=== PATIENT | female | born 1945 | race Caucasian/White ===

== ENCOUNTER 2024-09-22 08:58 | Inpatient (IN) ==
--- NOTE | 2024-09-01 12:22 | PAT Medication Instructions ---
Medication Instructions Date of Service September 01, 2024 Home Medications amlodipine 10 mg tablet 10 mg PO QAM apixaban 5 mg tablet (Eliquis) 5 mg PO BID atorvastatin 40 mg tablet 40 mg PO QPM carvedilol 12.5 mg tablet 25 mg PO BID cholecalciferol (vitamin D3) 50 mcg (2,000 unit) capsule (Vitamin D3) 50 mcg PO QAM furosemide 40 mg tablet 40 mg PO QAM garlic 500 mg PO QAM iron,carbonyl 65 mg-vitamin C 125 mg tablet,delayed release (Vitron-C) 2 tab PO QDL levothyroxine 100 mcg tablet 100 mcg PO QAM magnesium 1 tab PO BID olmesartan 40 mg tablet 40 mg PO QAM oxycodone-acetaminophen 5 mg-325 mg tablet (Percocet) 1 tab PO BID PRN Pain ropinirole 0.25 mg tablet 0.25 mg PO TID tizanidine 4 mg tablet 2 mg PO TID trazodone 150 mg tablet 150 mg PO HS venlafaxine 37.5 mg tablet 37.5 mg PO BID vit C 250 mg-vit E 90 mg-zinc 40 mg-copper 1 cm-tupslp-mazane capsule (PreserVision AREDS-2) 2 tab PO 1500 ASK your prescriber and surgeon apixaban 5 mg tablet (Eliquis) 5 mg PO BID STOP taking 2 weeks before surgery (or as soon as possible) garlic 500 mg PO QAM vit C 250 mg-vit E 90 mg-zinc 40 mg-copper 1 [id number] capsule (Pr eserVision AREDS-2) 2 tab PO 1500 DO NOT take the morning of surgery cholecalciferol (vitamin D3) 50 mcg (2,000 unit) capsule (Vitamin D3) 50 mcg PO QAM furosemide 40 mg tablet 40 mg PO QAM iron,carbonyl 65 mg-vitamin C 125 mg tablet,delayed release (Vitron-C) 2 tab PO QDL magnesium 1 tab PO BID olmesartan 40 mg tablet 40 mg PO QAM Take morning of surgery With a small sip of water, OTHERWISE NOTHING TO EAT OR DRINK AFTER MIDNIGHT: amlodipine 10 mg tablet 10 mg PO QAM carvedilol 12.5 mg tablet 25 mg PO BID levothyroxine 100 mcg tablet 100 mcg PO QAM oxycodone-acetaminophen 5 mg-325 mg tablet (Percocet) 1 tab PO BID PRN Pain (if needed) ropinirole 0.25 mg tablet 0.25 mg PO TID tizanidine 4 mg tablet 2 mg PO TID venlafaxine 37.5 mg tablet 37.5 mg PO BID Take evening before surgery atorvastatin 40 mg tablet 40 mg PO QPM carvedilol 12.5 mg tablet 25 mg PO BID magnesium 1 tab PO BID oxycodone-acetaminophen 5 mg-325 mg tablet (Percocet) 1 tab PO BID PRN Pain (if needed) ropinirole 0.25 mg tablet 0.25 mg PO TID tizanidine 4 mg tablet 2 mg PO TID trazodone 150 mg tablet 150 mg PO HS venlafaxine 37.5 mg tablet 37.5 mg PO BID Other Notes If you have any questions please call us at [phone] or [phone] or [phone] or [phone]
--- NOTE | 2024-09-09 11:23 | Anesthesiology Consultation ---
Date of Service September 09, 2024 Assessment & Plan (1) Encounter for pre-operative examination: - Check BSG AM DOS - Eliquis instructions per surgeon/prescriber - Infectious disease screening: Per assessment on 09/09/24: No known recent infectious disease contacts or current infectious disease symptoms. - Cardiology visit (09/07/24): "S/P TAVR (transcatheter aortic valve replacem ent)- underwent a successful transfemoral implantation of a #23mm Allen Dinh S3 Ultra valve on 10/01/[address] Brewster.. euvolemic on exam.. No ppx antibiotics indicated as she has upper/lower dentures.. HTN, goal below 140/80.. blood pressure above goal.. continue amlodipine 10 mg daily, olmesartan 40 mg daily.. Reduce carvedilol to 12.5 mg twice daily due to bradycardia.. consider addition of hydralazine, will send message to nephrology for recommendations.. Preoperative cardiovascular examination- scheduled for back surgery 09/22.. asymptomatic and euvolemic on exam.. recommend moving up echo appt prior to surgery to assess valvular disease.. discussed further cardiac risk stratification with stress test, discussed dobutamine stress test and nuclear stress test, likely would not tolerate treadmill stress test, discussed risks and benefits, patient declines any stress test, understands risks of not completing further testing including MS, .. she is at moderate to high risk for perioperative cardiac complications.. recommend to hold Eliquis 3 days prior to procedure to minimize bleeding risk, ideally would continue aspirin" > Received response from surgeon's office that surgeon has been made aware of cardiology perioperative risk assessment. - PCP visit (09/10/24): "if cleared by Cardiology feel that the patient can continue with surgery as well. Monitor blood pressures to make sure numbers are coming down.. I was unable to access her labs which were done at [facility]. As long as labs within normal limits feel patient can continue to proceed.. see Cardiology notes for further info on the patient's cardiovascular status.. They are able to walk up a flight of stairs, walk two blocks at a moderate pace, and grocery shop. The patient's functional status is adequate (equal to 4 METS).. Patient is high medical risk for the listed proced ure.. Discontinue Eliquis 3 days prior to surgery. Ideally would be great if she could continue aspirin 81 mg daily.. Patient was assessed by Cardiology and deemed at moderate risk for surgery." - Siri with surgeon's office confirmed surgeon aware of patient's mod-high risk assessments provided by PCP/cardio. Patient acceptable risk for given surgery pending evaluation DOS. Chart Review Chart Review: Patient seen in Pre Admission Testing Teaching & Discussion Pre-Anesthesia Teaching/Discussion Notes: Instructed NPO after midnight before surgery,except medications with 15 cc of water. Medication instructions provided according to the PAT guidelines. History Surgery Operation Date: 09/22/24 09:35 Proposed Procedures p L3-L5 Hardware Removal, L2-L3 Decompression, and L2-L5 Fusion Instrumentation, Spinal Cord Monitoring - Irvin Barnes, Height/Weight Height: 4 ft 11.5 in Weight: 65 kg Allergies Allergy/AdvReac Type Severity Reaction Status Date / Time No Known Allergies Allergy Verified 09/01/24 10:21 Medications Home Medications Medication Instructions Recorded Confirmed Last Taken amlodipine 10 mg tablet 10 mg PO QAM 09/01/24 09/01/24 Unknown apixaban 5 mg tablet (Eliquis) 5 mg PO BID 09/01/24 09/01/24 Unknown atorvastatin 40 mg tablet 40 mg PO QPM 09/01/24 09/01/24 Unknown carvedilol 12.5 mg tablet 1 mg PO BID 09/01/24 09/09/24 Unknown cholecalciferol (vitamin D3) 50 50 mcg PO QAM 09/01/24 09/01/24 Unknown mcg (2,000 unit) capsule (Vitamin D3) furosemide 40 mg tablet 40 mg PO QAM 09/01/24 09/01/24 Unknown garlic 500 mg PO QAM 09/01/24 09/01/24 Unknown iron,carbonyl 65 mg-vitamin C 125 2 tab PO QDL 09/01/24 09/01/24 Unknown mg tablet,delayed release (Vitron-C) levothyroxine 100 mcg tablet 100 mcg PO QAM 09/01/24 09/01/24 Unknown magnesium 1 tab PO BID 09/01/24 09/01/24 Unknown olmesartan 40 mg tablet 40 mg PO QAM 09/01/24 09/01/24 Unknown oxycodone-acetaminophen 5 mg-325 1 tab PO BID PRN Pain 10/01/24 10/01/24 Unknown mg tablet (Percocet) ropinirole 0.25 mg tablet 0.25 mg PO TID 09/01/24 09/01/24 Unknown tizanidine 4 mg tablet 2 mg PO TID 09/01/24 09/01/24 Unknown trazodone 150 mg tablet 150 mg PO HS 09/01/24 09/01/24 Unknown venlafaxine 37.5 mg tablet 37.5 mg PO BID 09/01/24 09/01/24 Unknown vit C 250 mg-vit E 90 mg-zinc 40 2 tab PO 1500 09/01/24 09/01/24 Unknown mg-copper 1 [id number] capsule (PreserVision AREDS-2) Past Medical History Medical History Anxiety Chronic anemia Baseline hgb 9-10s Chronic back pain Chronic kidney disease [facility] Baseline creatinine 2.1-2.2 per available records Coronary artery disease Cardiac cath 08/2023- nonobstructive disease, medical management recommended Degenerative disc disease Depression History of aortic valve disease TAVR Dinh (09/2023) Follows with [facility] cardio Echo 09/2024 History of COVID-19 : mild symptoms, resolved History of non-Hodgkin's lymphoma (2004) s/p chemotherapy, currently in remission History of stroke 07/2022, residual mild right hand/right foot weakness Hx of diabetes mellitus Type 2, diet controlled Hyperlipidemia Hypertension Hypothyroidism Macular degeneration of left eye Mild/early stages Osteoarthritis Restless leg syndrome Exercise / Class Metabolic Activity III < 4 Walking/Shop/Light housework Past Family History Family History Other No family history of adverse response to anesthesia Past Surgical History Surgical History History of cardiac cath 08/2023 (prior to TAVR)- no stents History of cataract surgery R/L History of cholecystectomy History of colonoscopy Per records History of ERCP (2022) + stent placement (subsequent removal) History of esophagogastroduodenoscopy (EGD) Per records History of heart valve replacement 09/2023- TAVR Dinh History of knee replacement procedure of left knee History of Lizy-en-Y gastric bypass History of umbilical hernia repair S/P epidural steroid injection S/P lumbar fusion x2 L3/L4 fusion L4/L5 fusion S/P lymph node biopsy (2004) Groin S/P panniculectomy S/P [place]-BSO Past Anesthesia History No Hx of Anesthesia Complications and No Family Hx of Anesthesia Complications History of PONV No Hx of PONV and No Hx of Motion Sickness Social History Smoking Status: Never smoker Do You Dip or Chew Tobacco: No Hx Alcohol Use: No Hx Substance Use: No substance use type: does not use Review of Systems Patient denies chest pain, shortness of breath, fever, chills, cough, wheezing, palpitations. Physical Exam Vital Signs BP 155/73 P 72 TEMP 98.5 SP02 97%RA RESP 18 Physical Full cervical extension range of motion. Full TMJ range of motion. TMD 3 finger breaths Mallampati Score II Dentition: upper/lower full dentures with two lower posts Lungs: clear throughout to auscultation Cardiac: regular rate and rhythm, III/ systolic murmur Spine: normal Carotid arteries: negative bruit Extremities: no LE edema Lab Results Anesthesia Preop Results Results Anesthesia Widget: PTT 31 Seconds (21-31) 09/09/24 Urine Color Yellow 09/09/24 Urine Appearance Clear (Clear) 09/09/24 Urine pH 5.5 (4.5-7.5) 09/09/24 Urine Specific Armour 1.008 (1.000-1.030) 09/09/24 Urine Protein Trace (Negative) H 09/09/24 Urine Glucose (UA) Negative (Negative) 09/09/24 Urine Ketones Negative (Negative) 09/09/24 Urine Blood Negative (Negative) 09/09/24 Urine Nitrite Negative (Negative) 09/09/24 Urine Bilirubin Negative (Negative) 09/09/24 Urine Urobilinogen Negative (Negative) 09/09/24 Urine Leukocyte Esterase Negative (Negative) 09/09/24 Urine WBC (Auto) 0-5 /hpf (0-5) 09/09/24 Urine RBC (Auto) 3-5 /hpf (0-2) H 09/09/24 Urine Hyaline Casts (Auto) 0-2 /lpf (0-2) 09/09/24 Urine Epithelial Cells (Auto) 0-2 /hpf (0-2) 09/09/24 Urine Bacteria (Auto) None Seen (None Seen) 09/09/24 Blood Type A Positive 09/09/24 Antibody Screen NEGATIVE 09/09/24 Testing Laboratory Results 08/18/24 WBC 9.42 H/H 10.6/34.6 PLATELETS 252 SODIUM 138 POTASSIUM 4.8 CHLORIDE 104 CO2 19 BUN 40 CREATININE 2.1 (stable) GLUCOSE 161 PT 15.8 INR 1.3 Mildly elevated coags- patient taking Eliquis* A1C 5.9% TSH 0.22 Ferritin 108 Iron 44 Iron binding capacity 316 Transferrin saturation percent 14 Electrocardiogram Date: 11/06/23 Marked sinus bradycardia with PACs in pattern of bigeminy at 41bpm. LVH with secondary QRS widening and repolarization abnormality. Date: 09/07/24 "Sinus bradycardia, 53 bpm" per [facility] cardio note from same day. Tracings unavailable. Chest X-Ray Date: 10/02/23 Findings: + NAD Echocardiogram Date: 09/07/24 LVEF 60-64%. The patient is status post TAVR with Dinh type prosthetic valve. Mean systolic gradient through the TAVR is 60 mmHg. Peak aortic valve velocity through the TAVR is 2.7M/sec. Significant aortic valve prosthetic regurgitation is absent. Severe mitral annular calcification. Mild to moderate MR. Mild TR. Small (<5mm) circumferential pericardial effusion is noted. Mildly increased concentric LV wall thickness. LV wall motion is normal. Grade 1 diastolic dysfunction. Cardiac Catheterization Date: 08/09/23 Coronary diseasehemodynamically insignificant. Mild luminal irregularities. Recommendations: Medical management of nonobstructive CAD.
[2024-09-22] MEDS ORDERED: fentaNYL citrate PF 100 MCG/2 ML VIAL ONE (09:46)
[2024-09-22] MEDS ORDERED: DEXAMETHASONE SOD INJ 4 MG/ML VIAL ONE (09:46)
[2024-09-22] MEDS ORDERED: MIDAZOLAM HCL 1 MG/ML 2ML VIAL ONE (09:46)
[2024-09-22] MEDS ORDERED: LIDOCAINE 2% 2 ML VIAL/AMP(20MG/ML) INFIL ONE ×2 (09:46)
[2024-09-22] MEDS ORDERED: ONDANSETRON INJ 2 MG/ML 2 ML VIAL ONE (09:46)
[2024-09-22] MEDS ORDERED: ROCURONIUM BROMIDE 10 MG/ML 5 ML VIAL IV ONE ×9 (09:46→11:17)
[2024-09-22] MEDS ORDERED: PROPOFOL IV EMULSION 10 MG/ML 20 ML VIAL IV ONE (09:46)
--- NOTE | 2024-09-22 10:19 | History & Physical Bridge Note ---
Date of Service September 22, 2024 History & Physical Bridge Note I have examined the patient, reviewed the History & Physical and in the interval since the performance of the History & Physical I have noted the following changes of clinical significance: no changes noted
--- NOTE | 2024-09-22 10:20 | History & Physical Report ---
Date of Service September 22, 2024 Assessment & Plan (1) Lumbar stenosis with neurogenic claudication: Plan: L3-L5 hardware removal, L2-L3 decompression and fusion, reinstrumentation L2-L5 History of Present Illness Chief Complaint: Back and bilateral leg pain Primary Care Provider: Fatmata Daniel MD This is a 78-year-old female presents with chronic persistent back and leg pain after failing course of nonoperative care is here for surgical invention. Allergies Allergy/AdvReac Type Severity Reaction Status Date / Time No Known Allergies Allergy Verified 09/22/24 09:50 Home Medications Medication Instructions Recorded Confirmed Type amlodipine 10 mg tablet 10 mg PO QAM 09/01/24 09/22/24 History apixaban 5 mg tablet (Eliquis) 5 mg PO BID 09/01/24 09/22/24 History atorvastatin 40 mg tablet 40 mg PO QPM 09/01/24 09/22/24 History carvedilol 12.5 mg tablet 1 mg PO BID 09/01/24 09/22/24 History cholecalciferol (vitamin D3) 50 50 mcg PO QAM 09/01/24 09/22/24 History mcg (2,000 unit) capsule (Vitamin D3) furosemide 40 mg tablet 40 mg PO QAM 09/01/24 09/22/24 History garlic 500 mg PO QAM 09/01/24 09/22/24 History iron,carbonyl 65 mg-vitamin C 125 2 tab PO QDL 09/01/24 09/22/24 History mg tablet,delayed release (Vitron-C) levothyroxine 100 mcg tablet 100 mcg PO QAM 09/01/24 09/22/24 History magnesium 1 tab PO BID 09/01/24 09/22/24 History olmesartan 40 mg tablet 40 mg PO QAM 09/01/24 09/22/24 History oxycodone-acetaminophen 5 mg-325 1 tab PO BID PRN Pain 09/01/24 09/22/24 History mg tablet (Percocet) ropinirole 0.25 mg tablet 0.25 mg PO TID 09/01/24 09/22/24 History tizanidine 4 mg tablet 2 mg PO TID 09/01/24 09/22/24 History trazodone 150 mg tablet 150 mg PO HS 09/01/24 09/22/24 History venlafaxine 37.5 mg tablet 37.5 mg PO BID 09/01/24 09/22/24 History vit C 250 mg-vit E 90 mg-zinc 40 2 tab PO 1500 09/01/24 09/22/24 History mg-copper 1 [id number] capsule (PreserVision AREDS-2) Past Med/Surg History Problem List Encounter for pre-operative examination Depression (Chronic) GERD (gastroesophageal reflux disease) (Chronic) Lumbar stenosis with neurogenic claudication (Acute) Medical History Anxiety Chronic anemia Baseline hgb 9-10s Chronic back pain Chronic kidney disease [facility] Baseline creatinine 2.1-2.2 per available records Coronary artery disease Cardiac cath 08/2023- nonobstructive disease, medical management recommended Degenerative disc disease Depression History of aortic valve disease TAVR Dinh (09/2023) Follows with [facility] cardio Echo 09/2024 History of COVID-19 : mild symptoms, resolved History of non-Hodgkin's lymphoma (2004) s/p chemotherapy, currently in remission History of stroke 07/2022, residual mild right hand/right foot weakness Hx of diabetes mellitus Type 2, diet controlled Hyperlipidemia Hypertension Hypothyroidism Macular degeneration of left eye Mild/early stages Osteoarthritis Restless leg syndrome Surgical History History of cardiac cath 08/2023 (prior to TAVR)- no stents History of cataract surgery R/L History of cholecystectomy History of colonoscopy Per records History of ERCP (2022) + stent placement (subsequent removal) History of esophagogastroduodenoscopy (EGD) Per records History of heart valve replacement 09/2023- TAVR Dinh History of knee replacement procedure of left knee History of Lizy-en-Y gastric bypass History of umbilical hernia repair S/P epidural steroid injection S/P lumbar fusion x2 L3/L4 fusion L4/L5 fusion S/P lymph node biopsy (2004) Groin S/P panniculectomy S/P [place]-BSO Family History Other No family history of adverse response to anesthesia Social History Smoking Status: Never smoker Second Hand Exposure: No; Do You Dip or Chew Tobacco: No; Tobacco Cessation Education Requested by Patient: No Hx Alcohol Use: No Hx Substance Use: No Preferred Language: [place] Communication Ability: Effective Bottom Stainer Required: No Beliefs That Will Affect Care: None Current Living Situation: Family Current Living Situation Comment: daughterMagi lives with patient Other Information That Helps Us Care for You: No Feels Safe at Home: Yes Safety Concerns: Feels Safe At This Time Assistive Devices: Denture - Upper, Denture - Lower and Glasses Physical Exam Physical Exam: Patient is alert and oriented Heart regular rhythm Lungs clear
[2024-09-22] MEDS: LR 60ML/HR IV SCH (10:25)
[2024-09-22] MEDS: CeleBREX 200 MG CAP PO SCH (10:31)
[2024-09-22] MEDS: ACETAMINOPHEN 500 MG TAB PO SCH (10:31)
[2024-09-22] MEDS: GABAPENTIN 300 MG CAP PO SCH (10:31)
[2024-09-22] MEDS: LR 15ML/HR IV SCH (10:32)
[2024-09-22] MEDS ORDERED: PROMETHAZINE HCL 6.25 MG in SODIUM CHLORIDE 0.9% 50 ML IV PRN (10:35)
[2024-09-22] MEDS ORDERED: ePHEDrine sulfate 50 MG/ML AMP IV PRN (10:35)
[2024-09-22] MEDS ORDERED: ATROPINE SULFATE 0.1 MG/ML 10ML SYR IV PRN (10:35)
[2024-09-22] MEDS ORDERED: PHENYLEPHRINE 100MCG/ML 10ML SYR IV ONE (11:15)
[2024-09-22] MEDS ORDERED: SUGAMMADEX SODIUM 200 MG/2 ML VIAL IV ONE (11:16)
--- OUTSIDE RECORDS SUMMARY | 2024-09-22 11:36 | External Medical Summary | Summary of Care ---
Author Name Unknown Organization [facility] Address [address] [place] [address] Phone [phone] Care Team Providers Care Caustic Loader Name Role Phone Jessica Ansari MD Primary Care Provider [phone] Reason for Visit * Reason Onset Date Comments Medication Question 09/16/2024 Stop Eliquis Encounter Details Date Type Department Care Team ([facility] st Contact Info) Description [facility] [address] [facility] [place] [id number] Mago Kaufman MD [address] [place] [address] Medication Question (Stop Eliquis) Allergies No known active allergiesdocumented as of this encounter (statuses as of 09/16/2024) Medications Medication Sig Dispensed Refills Start Date End Date Status PreserVision AREDS 2 Oral Capsule Take 1 Capsule by mouth in the morning and 1 Capsule before bedtime. Active Cyanocobalamin 1000 MCG Oral TabletIndications:Vit hicks B12 deficiency Take 1 Tablet by mouth in the morning. 15 Tablet 12/05/2022 Active Diclofenac Sodium 1 % External Gel (Voltaren)Indications :Chronic left shoulder pain Apply topically to affected area 4 times a day. Apply to left shoulder 100 g 1 08/27/2023 Active Apixaban 5 MG Oral Tablet (Eliquis) Take 1 Tablet by mouth in the morning and 1 Tablet before bedtime. 180 Tablet 3 10/10/2023 Active OneTouch Verio In Vitro Strip (Glucose Blood)Indications:Pre diabetes Use up to 4 times a day E11.9 100 Strip 11 10/10/2023 Active Furosemide 40 MG Oral Tablet (Lasix) Take 1 Tablet by mouth in the morning. 90 Tablet 3 10/25/2023 Active Levothyroxine Sodium 100 MCG Oral Tablet (Levoxyl)Indications: Acquired hypothyroidism Take 1 Tablet by mouth daily first thing in the morning. 90 Tablet 3 11/11/2023 Active Atorvastatin Calcium 40 MG Oral Tablet (Lipitor) TAKE ONE TABLET BY MOUTH EVERY DAY. 90 Tablet 3 11/19/2023 12/29/2024 Active rOPINIRole HCl 0.25 MG Oral Tablet (Requip)Indications:T ype 2 diabetes mellitus with hemoglobin A1c goal of less than 8.0% ([facility]) TAKE ONE TABLET BY MOUTH THREE TIMES A DAY 270 Tablet 3 01/24/2024 01/23/2025 Active traZODone HCl 150 MG Oral Tablet (Desyrel)Indications: Insomnia due to other mental disorder Take 1 Tablet by mouth at bedtime. 60 Tablet 5 04/23/2024 Active Albuterol Sulfate HFA 108 (90 Base) MCG/ACT Inhalation Aerosol Solution INHALE 2 PUFFS BY MOUTH EVERY 4 HOURS NEEDED FOR SHORTNESS OF BREATH 18 g 5 06/17/2024 06/17/2025 Active Olmesartan Medoxomil 40 MG Oral Tablet (Benicar) Take 1 Tablet by mouth in the morning. 90 Tablet 1 06/18/2024 Active tiZANidine HCl 4 MG Oral Tablet (Zanaflex)Indications :Degenerative disc disease, cervical Take 1/2 Tablet by mouth every 8 hours as needed for Muscle spasms. 45 Tablet 2 07/06/2024 Active Venlafaxine HCl 37.5 MG Oral Tablet (Effexor)Indications: Degenerative disc disease, cervical Take 2 Tablets by mouth daily. 60 Tablet 11 07/06/2024 Active amLODIPine Besylate 10 MG Oral Tablet (Norvasc) Take 1 Tablet by mouth in the morning. 90 Tablet 1 08/04/2024 Active Ketorolac Tromethamine 0.5 % Ophthalmic Solution (Acular) INSTILL 1 DROP INTO THE RIGHT EYE THREE TIMES DAILY 10 mL 3 08/06/2024 Active prednisoLONE Acetate 1 % Ophthalmic Suspension (Pred Forte) INSTILL 1 DROP INTO RIGHT EYE THREE TIMES DAILY. 10 mL 2 08/06/2024 Active OneTouch Verio w/Device KitIndications:Predia betes Use up to 4 times a day E11.9 1 Kit 08/11/2024 Active Wegovy 0.5 MG/0.5ML Subcutaneous Solution Auto-injector (Semaglutide-Weight Management)Indication s:Hemiplegia and hemiparesis following cerebral infarction affecting right dominant side (HCC),Tributary (branch) retinal vein occlusion, left eye, stable,Atherosclerosi s of [place] coronary artery without angina pectoris, unspecified whether [place] or transplanted heart,Dyslipidemia, goal LDL below 100 Inject 0.5 mg under the skin once a week. 3 mL 1 09/04/2024 Active Carvedilol 12.5 MG Oral Tablet (Coreg)Indications:HT N, goal below 140/80 Take 1 Tablet by mouth in the morning and 1 Tablet before bedtime. 360 Tablet 3 09/07/2024 Active Aspirin 81 MG Oral Tablet Delayed Release Take 1 Tablet by mouth in the morning. 09/07/2024 Active Vitamin D3 50 MCG (1999 UT) Oral Capsule Take 1 Capsule by mouth in the morning. 30 Capsule 5 09/10/2024 Active oxyCODONE-Acetaminoph en 5-325 MG Oral Tablet (Percocet)Indications :Encounter for long-term opiate analgesic use,Degenerative disc disease, cervical Take 1 Tablet by mouth 3 times a day as needed for Other (morning, noon, and evening for chronic pain). 70 Tablet 09/10/2024 Active Vitron-C 65-125 MG Oral Tablet (Iron-Vitamin C 65-125 mg per tab)Indications:Low iron Take 1 Tablet by mouth in the morning and 1 Tablet before bedtime. 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 Resolved & added to PMH. Pericardial effusion 07/20/2022 Moderate aortic regurgitation 07/20/2022 Prediabetes 02/12/2022 Overview: Per Prediabetes protocol Chronic kidney disease, stage 3b 04/11/2021 Overview: Per CKD protocol Postlaminectomy syndrome, lumbar 02/08/2021 Hypertensive kidney disease with stage 3b chronic kidney disease 10/10/2020 Overview: Per CKD protocol DDD (degenerative disc disease), lumbar 10/31/20 18 History of gastric bypass 01/27/2018 JERONIMO (generalized anxiety disorder) 01/27/2018 History of lymphoma 11/27/2017 Adjustment disorder with depressed mood 03/11/20 17 Severe aortic stenosis 12/06/2015 Hypertension goal BP (blood pressure) < 140/90 0 07/20/2015 Degenerative disc disease, cervical 12/25/2013 Anemia 01/20/2010 Overview: 03/13 iron, EPG, UPG , B12, folate normal. Vitamin D deficiency 01/20/2010 Dyslipidemia, goal LDL below 100 11/16/2009 Overview: simvastatin MEDICATION USE AGREEMENT 10/02/2009 Overview: Percocet. Reeval after Pain clinic eval Knee joint replacement status 07/26/2003 Overview: left Hypothyroidism documented as of this encounter (statuses as of 09/16/2024) Resolved Problems Problem Noted Date Diagnosed Date Resolved Date Chronic kidney disease (CKD) stage G4/A3, severely decreased glomerular filtration rate (GFR) between 15-29 mL/min/1.73 square meter and albuminuria creatinine ratio greater than 300 mg/g 05/04/2024 05/14/2024 Type 2 diabetes mellitus wit h stage 3b chronic kidney disease, without long-term current use of insulin 11/11/2023 02/26/2024 Chronic kidney disease (CKD) stage G3b/A2, moderately decreased glomerular filtration rate (GFR) between 30-44 mL/min/1.73 square meter and albuminuria creatinine ratio between 30-299 mg/g 12/06/2022 12/13/2022 Type 2 diabetes mellitus wit h hemoglobin A1c goal of less than 7.5% 12/05/2022 12/05/2022 Gastro-esophageal reflux dis ease without esophagitis 08/03/2022 08/27/2023 CVA (cerebral vascular accident) 07/20/2022 08/01/2022 Overview: history Type 2 diabetes mellitus wit h hemoglobin A1c goal of less than 7.5% 04/11/2021 02/01/2022 Overview: Per CKD protocol Diabetes mellitus with stage 3 chronic kidney disease 10/10/2020 04/13/2021 Overview: Per CKD protocol Other specified types of non -hodgkin lymphoma, intra-abdominal lymph nodes 05/08/2019 Type 2 diabetes mellitus with cataract 12/05/2018 02/01/2022 Hypertensive kidney disease with chronic kidney disease stage III 12/05/2018 10/13/2020 Overview: Per CKD protocol Type 2 diabetes mellitus wit h stage 3 chronic kidney disease, without long-term current use of insulin 01/27/2018 10/13/2020 Overview: Per CKD protocol Unspecified hypertensive kid jeanmarie disease with chronic kidney disease stage I through stage IV, or unspecified(403.90) 01/27/2018 10/31/2018 Kidney disease, chronic, sta ge III (GFR 30-59 ml/min) 05/07/2016 03/14/2018 Overview: Per CKD protocol #1 Lichen 02/09/2015 07/30/2017 Spondylosis of lumbar joint 12/25/2013 07/30/2017 Foraminal stenosis of lumbar region 12/25/2013 07/30/2017 Special screening for malign ant neoplasms, colon 11/03/2010 07/30/2017 Overview: 2008. Repeat n 10 years Special screening for osteoporosis 08/16/2010 07/30/2017 Overview: 08/11 low- mod risk. Repeat 3-5 yr Respiratory symptoms 07/28/2010 017 Overview: ? Hx wheeze. Flovent and alb in past Has resolved with weight loss. Only symptoms if has cold ICD-10 update of inactive term Family hx-breast malignancy 05/16/2010 07/30/2017 Mitral valve disorder 05/16/20102009 Overview: 08/10 echo mild MR, MVP Severe obesity with body mas s index (BMI) of 35.0 to 39.9 with serious comorbidity 05/16/2010 Overview: S/p gastric bypass 2001 ICD-10 update of inactive diagnosis Backache 01/18/2010 12/06/2015 Overview: On perocet she states 3 years for back pain. Low back pain with radiation to bilat buttocks. Intemittent radiation down either post leg to foot couple times a month. No numbness or weakness. No loss of bladder control. Does note diarrhea since on the metformin at times. Has not had PT or seen a back specialist or pain specialist for the back. Takes excedrin 1-2 pills 1-2 times a day. Takes the perococet at bedtime for the back pain. States that a long time ago had been on the darvocet. MRI LS 06/08 Mod spinal stenosis L4l5 more on left. Mild left L5S1 09/10 MRI grade 1 spondylo L4 on L5, effacement left nerve root. Injection helped for 6 weeks, pain then returned but not severe. 11/10 excedrin prn. Not daily. Tramadol not work as well as excedrin. Feels edgy on zanaflex. Change to flexeril hs prn. Uses tramadol at night 04/12 MRI stable with 2009 Did not tolerate 300 mg neurontin (dizzy) HTN, goal below 140/80 12/28/200907/20 Overview: Lisinopril chlorthalidone Type 2 diabetes mellitus wit h hemoglobin A1c goal of less than 8.0% 09/29/2009 05/31/2021 Overview: metformin ICD-10 update of inactive term Type 2 diabetes mellitus wit h hemoglobin A1c goal of less than 7.0% 04/13/2009 09/29/2009 Overview: Per Diabetes Taxonomy. ICD-10 update of inactive term Dyslipidemia, goal to be determined 04/13/2009 11/16/2009 Overview: Per Lipid Taxonomy. Intestinal postoperative nonabsorption 05/19/2008 07/30/2017 Overview: S/p gastric bypass 2001 LYMPHOMA NEC UNSPEC SITE 07/29/2006 Overview: CT abd/pelvis neg 02/07. [place] ABD./PELVIC SWELL., MASS OR LUMP, PERIUMBILIC 02/14/20 06 11/03/2010 ADVANCE DIRECTIVE INFORMATION 06/06/2005 11/27/2017 Overview: No, Advance Directive brochure given to patient at prior appointment. SKIN HYPERTRO-ATROPH NOS 10/18/200401/2010 PANNICULITIS, UNSP SITE 03/16/2004 12/01/2010 Incisional hernia 03/16/2004 07/30/2017 Menopause 02/15/2003 07/30/2017 Overview: S/p [place] BSo for benign reasons 1997. No abn pap. Last pap 2004 Allergic rhinitis 03/04/2002 07/30/2017 Overview: Singulair in past Morbid obesity, BMI not known 03/30/2009 HTN, goal below 140/90 12/28 Overview: Per HTN Taxonomy. Esophageal reflux 07/28/2010 Major depressive disorder Overview: Celexa since husbands 08/12 changed to prozac- not tolerate prozac. Returned to celexa. ICD-10 update of inactive term GENERALIZED ANXIETY DIS 07/03 Overview: Plan to wean xanax to longer acting ativan, then klonopin. 11/10 working on wean xanax Panic disorder 07/28/2010 documented as of this encounter (statuses as of 09/16/2024) Immunizations Name Administration Dates Next Due COVID-19 mRNA, LNP-s, No Pre serve, 2-Dose Series (Bitbond) 08/30/2021,02/07/2021,01/10/2021 HEP A - Hepatitis A (Adult > 18 yrs) 02/26/2024, 10/10/2023 HEPATITIS B VACCINE, RECOMB, 20 MCG/ML, ADULT (HEPLISAV-B) 02/26/2024,10/10/2023 Pneumococcal Conjugate Vacc, 13 Valent (Prevnar) 05/14/2017 Pneumococcal Polysaccharide PPV23 (Pneumovax) 11/13/2011,04/01/2006 Seasonal Influenza Vac., MDV , IM, 0.5 mL (Fluzone) 09/27/2014,10/06/2013,09/15/2012,08/31,09/06/2010,09/30/2009,09/30/2009 (Deferred: Patient Refused) Seasonal Influenza, High Dos e, Trivalent, PF, IM (Fluzone HD) 09/04/2024 Seasonal Influenza, PF, 6 M & above, IM , (FluLaval or Fluzone) 10/31/2018 Seasonal Influenza, Quadriva lent Hd (Fluzone Hd) 08/27/2023,08/03/2022,08/03/2021 Seasonal Influenza, Quadriva lent, No Preserve, IM 11/01/2017,09/05/2016,12/06/2015 TD, Preservative Free 07/28/2010 TDAP (age 10 and older)(Boostrix) 10/21/2023 TDAP, Age 7 and older, IM (Adacel) 09/30/2009([place]: Patient Refused) Zoster Vaccine Recombinant (Shingrix) 10/30/2021 ,08/03/2021 documented as of this encounter Social History Tobacco Use Types Packs/Day Years Used Date Smoking Tobacco: Never Passive Smoke Exposure: Past Smokeless Tobacco: Never Alcohol Use Standard Drinks/Week Comments No 0 (1 standard drink = 0.6 oz pur e alcohol) PHQ-2 Answer Date Recorded PHQ Adult Total Score 1 11/11/2023 Hunger Vital Sign Answer Date Recorded Within the past 12 months, y ou worried that your food would run out before you got the money to buy more. Never true 11/11/20 23 Within the past 12 months, t he food you bought just didn't last and you didn't have money to get more. Never true 11/11/2023 Childcare Answer Date Recorded Do you feel overwhelmed with taking care of a child, family member or friend? No 11/11/2023 Does your family need help f inding childcare? (Household - for ages 0-17 years) Not on file 11/11/2023 Clothing Answer Date Recorded Have you been unable to get clothing when it was really needed? No 11/11/2023 Is your family able to get c lothes or diapers when needed? (Household - for ages 0-17 years) Not on file 11/11/2023 Personal Safety Answer Date Recorded Do you feel unsafe or have concerns for your saf ety? No 11/11/2023 Do you have concerns for you r family's safety? (Household - for ages 0-17 years) Not on file 11/11/2023 Utilities Answer Date Recorded Do you have trouble paying y our heating, water, or electric bill? No 11/11/2023 Is your family able to pay t he heat, water, or electric bill? (Household - for ages 0-17 years) Not on file 11/11/2023 Does your family have access to good internet? (Household - for ages 0-17 years) Not on file 11/11/2023 Employment Status Answer Date Recorded Are you unemployed or without regular income? No 11/11/2023 Does the household have a re gular source of income? (Household - for ages 0-17 years) Not on file 11/11/2023 Social Connections Answer Date Recorded How often do you feel lonely or isolated from th ose around you? Never 11/11/2023 Financial Resource Strain Answer Date R ecorded Do you have any trouble payi ng for your medications, or do you think you might in the future? No 11/11/2023 Does your family have troubl e paying for medicine? (Household - for ages 0-17 years) Not on file 11/11/2023 Transportation Needs Answer Date Record ed READ ONLY Do you have troubl e getting a ride to medical visits or work? Never True 11/11/2023 Does your family have a hard time getting a ride to doctors visits? (Household - for ages 0-17 years) Not on file 11/11/2023 Has lack of transportation k ept you from medical appointments, meetings, work, or from getting things needed for daily living? Check all that apply. (Adult - for ages 18 years and over) Not on file 11/11/2023 Do you (or your family) have trouble finding or paying for a ride (transportation)? (Household - for ages 0-17 years) Not on file 11/11/2023 Housing Stability Answer Date Recorded Do you currently live in a s helter or have no steady place to sleep at night? No 11/11/2023 READ ONLY Do you think you a re at risk of becoming homeless? No 11/11/2023 Does your family worry about paying for your home or becoming homeless? (Household - for ages 0-17 years) Not on file 1 01/12/2023 Are you homeless or worried that you might be in the future? (Adult - for ages 18 years and over) Not on file Are you (or your family) mita eless or worried that you might be in the future? (Household - for ages 0-17 years) Not on file Food Insecurity Answer Date Recorded Do you need food for this week? No 11/11/2023 Are you able to get enough f ood for your family? (Household - for ages 0-17 years) Not on file 11/11/2023 Does your family need food t his week? (Household - for ages 0-17 years) Not on file 11/11/2023 Do you always have enough fo od for your family? (Household - for ages 0-17 years) Not on file 11/11/2023 Sex and Gender Information Value Date Recorded Sex Assigned at Female 09/07/2019 9:20 AM EDT Gender Identity Female 09/07/2019 9:20 AM EDT Sexual Orientation Straight 09/07/2019 9: 20 AM EDT Job Start Date Occupation Industry Not on file Not on file Not on file documented as of this encounter Functional Status Functional Status Response Date of Assess ment Are you deaf or do you have serious difficulty h earing? No 07/20/2022 Are you blind or do you have serious difficulty seeing, even when wearing glasses? No 07/20/2022 Do you have serious difficul ty walking or climbing stairs? (5 years old or older) No 07/22/2022 Do you have difficulty dress ing or bathing? (5 years old or older) No 07/20/2022 Because of a physical, menta l, or emotional condition, do you have difficulty doing errands alone such as visiting a doctor s office or shopping? (15 years old or older) No 07/20/20 Cognitive Status Response Date of Assessm ent Because of a physical, menta l, or emotional condition, do you have serious difficulty concentrating, remembering, or making decisions? (5 years old or older) No 07/20/2022 documented as of this encounter Miscellaneous Notes * Telephone Encounter - Jayshree Goldsmith OSA - 09/16/2024 11:36 AM EDT Person calling: pt Relationship to patient: Phone/Fax to return call: [phone] Reason for call(brief): pt called asking when to stop her Eliquis before procedure on 09/22/24 Pharmacy: Provider Name: Dr Louis Detailed message to office:pt called asking when to stop her Eliquis before procedure on 09/22/24 Thank you MALATHI Stapleton documented in this encounter Plan of Treatment Upcoming Encounters Date Type Department Care Team (Late st Contact Info) Description 09/17/2024 12:40 PM EDT Nurse Only Ancillary [address]st [address] [address] [place], [facility] [place] [id number] 10/06/2024 2:30 PM EST Office Visit Cardiology, [address] [place] [id number] Jaylyn Page PA-C [address] [place] [address] 10/15/2024 10:00 AM EST Office Visit [facility], [address] [address] Sanjiv Hernandez CRNP [address] [place] [address] 11/18/2024 1:40 PM EST Office Visit Nephrology, [address] [address] Obinna Blank MD [address] [place] [address] 12/10/2024 10:00 AM EST Laboratory Laboratory, [address] [phone] [place] [address] [address] 03/18/2025 10:00 AM EDT Laboratory Laboratory, [address] [address] [place], [address] [address] 03/25/2025 8:00 AM EDT Office Visit [facility] [place] [address] [place] [address] Jessica Ansari MD [address] [place] [address] Scheduled Procedures Name Priority Associated Diagnoses Date/Ti me COLONOSCOPY FLEXIBLE PROXIMA L DIAGNOSTIC Recall Special screening for malignant neoplasms, colon Health Maintenance Due Date Last Done Comments Adult Wellness Visit 2010 HOME BP CUFF VALIDATION YEARLY 06/18/2018 06/18/2017 COVID-19 Vaccine ( season) 2024 08/30/2021, 02/07/2021, 01/10/2021 Depression Screening 11/11/2024 11/11/2023 GFR 02/15/2025 08/18/2024, 01/31, 12/27/2023, Additional history exists Albumin/Creatinine Ratio 05/01/2025 024, 06/24/2023, 06/07/2023, Additional history exists CKD HGB USE SMARTSET 34291 08/18/202508/18, 08/18/2024, 06/25/2024, Additional history exists CKD PHOS USE SMARTSET 44894 08/18/202508/02, 02/05/2023, 12/09/2018, Additional history exists HbA1c 08/18/2025 08/18/2024, 11/0 08/2023, 09/03/2023, Additional history exists TSH 08/18/2025 08/18/2024, 12/0 05/2023, 09/30/2023, Additional history exists DXA Scan 08/05/2027 08/05/2020, 11/0 04/2013, 10/06/2013, Additional history exists DTap/Tdap Vaccines (2 - Td or Tdap) 10/21/2033 10/21/2023, 07/28/2010 Pneumococcal Vaccine: 65+ Years Completed 05/14/2017, 11/13/2011, 04/01/2006 Zoster Vaccines Completed 10/30/2021, 08/03/2021 Diabetic Eye Exam Discontinued 09/10/2023, , 08/13/2023, Additional history exists Diabetic Foot Exam Discontinued 02/26/2024, 0 08/03/2021, 07/29/2020, Additional history exists Hepatitis B Vaccine Completed 02/26/2024, Influenza Vaccine (FLU shot) Completed 09/04/2024, 08/27/2023, 08/03/2022, Additional history exists HPV (Gardasil) Vaccine Aged Out No lo nger eligible based on patient's age to complete this topic MENINGOCOCCAL (MENACTRA/MENVEO) Aged Out No longer eligible based on patient's age to complete this topic documented as of this encounter Medical Devices Implanted Type Area Snow Groomer Device Identifier Shelf Expiration Date Model / Serial / Lot Sureclip 16mm 235cm - [id number] Implanted:Qty: 1 on 04/23/2023 by Deisy Tellez DO at OR [facility] [employer] [id number] 11/17/2024 [id number] / / [id number] Valve Dinh 3 Ultra 23mm - [id number] Implanted:Qty: 1 on 10/01/2023 by Mejia Brewster MD at [facility] [employer] [id number] 09/12/2024 [id number] / / documented as of this encounter Advance Directives * Full Code (Latest Code Status on File) Date Activated Date Inactivated Comments 10/01/2023 2:52 PM 10/03/2023 4:31 PM This order reflects the patients wishes and were consensually agreed upon. Question Answer Comments Discussion of Advance Directives occurred with: Patient * Full Code Date Activated Date Inactivated Comments 08/29/2023 10:14 AM 08/29/2023 3:42 PM This order reflects the patients wishes and were consensually agreed upon. Question Answer Comments Discussion of Advance Direct prabha occurred with: Not Discussed due to patient's condition * Full Code Date Activated Date Inactivated Comments 08/29/2023 8:52 AM 08/29/2023 10:13 AM This order reflects the patients wishes and were consensually agreed upon. Question Answer Comments Discussion of Advance Direct prabha occurred with: Not Discussed due to patient's condition * Full Code Date Activated Date Inactivated Comments 05/07/2023 3:16 PM 05/07/2023 8:29 PM This order ref lects the patients wishes and were consensually agreed upon. Question Answer Comments Discussion of Advance Direct prabha occurred with: Not Discussed due to patient's condition * Full Code Date Activated Date Inactivated Comments 05/07/2023 1:56 PM 05/07/2023 3:16 PM This order ref lects the patients wishes and were consensually agreed upon. Question Answer Comments Discussion of Advance Direct prabha occurred with: Not Discussed due to patient's condition Care Teams Caustic Loader Relationship Specialty Start Date End Date Jessica Ansari MD [address] [place] [phone] PCP - General Family Medicine 12/05/22 documented as of this encounter
--- OUTSIDE RECORDS SUMMARY | 2024-09-22 11:36 | External Medical Summary | Summary of Care ---
Author Name Unknown Organization [facility] Address [address] [place] [address] Phone [phone] Care Team Providers Care Head Bander And Liner Operator Name Role Phone Jessica Ansari MD Primary Care Provider Reason for Visit * Reason Comments pre-op exam 09/22/2024 Dr. [place] [facility] [place] Encounter Details Date Type Department Care Team (Late st Contact Info) Description 09/10/2024 12:20 PM EDT Office Visit [facility] [address] [address] Farooq Karimi CRNP [address] [address] Preop examination* Allergies No known active allergiesdocumented as of this encounter (statuses as of 09/10/2024) Medications Medication Sig Dispensed Refills Start Date [...] hemoglobin A1c goal of less than 8.0% ([facility]) TAKE ONE TABLET BY MOUTH THREE TIMES [...] vein occlusion, left eye, stable,Atherosclerosi s of sun'aq coronary artery without angina pectoris, unspecified whether sun'aq or transplanted heart,Dyslipidemia, goal LDL below 100 [...] as of this encounter (statuses as of 09/10/2024) Active Problems Problem Noted Date Diagnosed Date Tributary (branch) retinal vein occlusion, left eye, stable 02/26/2024 Hyperparathyroidism 02/26/2024 Hemiplegia and hemiparesis f ollowing cerebral infarction affecting right dominant side 11/11/2023 S/P TAVR (transcatheter aortic valve replacement ) 10/02/2023 Atherosclerosis of sun'aq co ronary artery without angina pectoris 08/03/2022 [...] as of this encounter (statuses as of 09/10/2024) Resolved Problems Problem Noted Date Diagnosed Date [...] SKIN HYPERTRO-ATROPH NOS 10/18/200401/2010 PANNICULITIS, UNSP SITE 03/16/200401/2010 Incisional hernia 03/16/2004 07/30/2017 Menopause 02/15/2003 07/30/2017 Overview: S/p [place] BSo for benign reasons 1997. No abn pap. Last pap 2004 Allergic rhinitis 03/04/2002 07/30/2017 Overview: [place] in past Morbid obesity, BMI not known [...] as of this encounter (statuses as of 09/10/2024) Immunizations Name Administration Dates Next Due COVID-19 mRNA, LNP-s, No Pre serve, 2-Dose Series ([employer]) 08/30/2021,02/07/2021,01/10/2021 HEP A - Hepatitis A (Adult [...] Passive Smoke Exposure: Past Smokeless Tobacco: Never Tobacco Cessation:Counseling Given: Not Answered Alcohol Use Standard Drinks/Week Comments No 0 [...] money to get more. Never true 11/11/2023 Sex and Gender Information Value Date Recorded Sex Assigned at Female 09/07/2019 9:20 AM EDT Gender Identity Female 09/07/2019 9:20 AM EDT Sexual Orientation Straight 09/07/2019 9: 20 AM EDT Job Start Date Occupation Industry Not on file Not on file Not on file documented as of this encounter Last Filed Vital Signs Vital Sign Reading Time Taken Comments Blood Pressure 146/72 09/10/2024 12:29 PM EDT Pulse 60 09/10/2024 12:29 PM EDT Temperature 37.2 C (99 F) 09/10/2024 12: 29 PM EDT Respiratory Rate 16 09/10/2024 12:2 9 PM EDT Oxygen Saturation 100% 09/10/2024 12: 29 PM EDT Inhaled Oxygen Concentration - - Weight 64.3 kg (141 lb 12.8 oz) 024 12:29 PM EDT Height 149.9 cm (4' 11.02") 09/10/2024 12:29 PM EDT Body Mass Index 28.62 09/10/2024 12:29 PM EDT documented in this encounter Functional Status Functional Status Response [...] No 07/20/2022 documented as of this encounter Progress Notes * Farooq Karimi CRNP - 09/10/2024 12:37 PM EDT Images from the original note were not included. Pre-Operative Medical Evaluation Brief Clinical History Ms. Heller is a 78 year old female last seen in [facility] on 09/04/2024 by Jessica Ansari She has a h/o the following chronic conditions indicated on the problem list: Chronic Conditions Hypothyroidism Knee joint replacement status MEDICATION USE AGREEMENT Dyslipidemia, goal LDL below 100 Anemia Vitamin D deficiency Degenerative disc disease, cervical Hypertension goal BP (blood pressure) < 140/90 Severe aortic stenosis Adjustment disorder with depressed mood History of lymphoma History of gastric bypass JERONIMO (generalized anxiety disorder) DDD (degenerative disc disease), lumbar Hypertensive kidney disease with stage 3b chronic kidney disease Postlaminectomy syndrome, lumbar Chronic kidney disease, stage 3b (HCC) Prediabetes Pericardial effusion Moderate aortic regurgitation History of CVA (cerebrovascular accident) Atherosclerosis of sun'aq coronary artery without angina 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 Barnes Date of procedure: 09/22/2024 Brief History of Present Illness: Ongoing and worsening back pain Review of Systems: Constitutional ROS: No change in weight, No weakness, No fatigue, and No fevers, sweats, or chills Eye ROS: No recent significant change in vision, No eye pain, redness, discharge, and No diplopia Ear ROS: No ear pain, No drainage, No tinnitus or vertigo, and No recent change in hearing Nose ROS: No history of frequent colds or sinusitis, No nasal stuffiness, and No significant epistaxis Mouth/Throat ROS: No bleeding gums, No thrush, or No sore throat Neck ROS: No lumps or masses and No swollen glands Pulmonary ROS: No cough, sputum, or hemoptysis, No wheezing, No rales, No shortness of breath, and No recent change in breathing Cardiovascular ROS: No chest pain, No shortness of breath, No dyspnea on exertion, No orthopnea, Noparoxysmal nocturnal dyspnea, No edema, No palpitations, and No syncope Gastrointestinal ROS: No abdominal pain, No change in bowel habits, No significant heartburn, No significant change in appetite, No nausea, vomiting, diarrhea, or constipation, No hematemesis, No blood in stools or black tarry stools, No abdominal bloating or early satiety, and No dysphagia Genito-Urinary Female ROS: No dysuria, No frequency, No incontinence, and No urgency Musculoskeletal/Extremities ROS: No pain, redness or swelling on the joints Hematologic/Lymphatic ROS: No anemia, No chills, No bruising, No night sweats, and No swollen nodes Skin/Integumentary ROS: No edema, No rash, and No itching Neurologic ROS: Normal balance, No headaches, No seizures, and No weakness Medical History Problem List: Chronic kidney disease (CKD) stage G4/A3, severely decreased glomerular filtration rate (GFR) between 15-29 mL/min/1.73 square meter and albuminuria creatinine ratio greater than 300 mg/g ([facility]) (05/04/2024) Tributary (branch) retinal vein occlusion, left eye, stable (2023) Hyperparathyroidism ([facility]) (02/26/2024) Hemiplegia and hemiparesis following cerebral infarction affecting right dominant side ([facility]) (11/11/2023) Type 2 diabetes mellitus with stage 3b chronic kidney disease, without long-term current use of insulin ([facility]) (11/11/2023) S/P TAVR (transcatheter aortic valve replacement) (10/02/2023) Chronic kidney disease (CKD) stage G3b/A2, moderately decreased glomerular filtration rate (GFR) between 30-44 mL/min/1.73 square meter and albuminuria creatinine ratio between 30-299 mg/g ([facility]) (04/2023) Type 2 diabetes mellitus with hemoglobin A1c goal of less than 7.5% ([facility]) (12/05/2022) Atherosclerosis of sun'aq coronary artery without angina pectoris (01/2022) Gastro-esophageal reflux disease without esophagitis (08/03/2022) 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 (08/03/2022) History of CVA (cerebrovascular accident) (08/01/2022) CVA (cerebral vascular accident) ([facility]) (07/20/2022) Pericardial effusion (07/20/2022) Moderate aortic regurgitation (07/20/2022) Prediabetes (02/12/2022) Chronic kidney disease, stage 3b ([facility]) (04/11/2021) Type 2 diabetes mellitus with hemoglobin A1c goal of less than 7.5% ([facility]) (04/11/2021) Postlaminectomy syndrome, lumbar (02/08/2021) Diabetes mellitus with stage 3 chronic kidney disease ([facility]) (2019) Hypertensive kidney disease with stage 3b chronic kidney disease (08/2020) Other specified types of non-hodgkin lymphoma, intra-abdominal lymph nodes ([facility]) (05/08/2019) Type 2 diabetes mellitus with cataract ([facility]) (12/05/2018) Hypertensive kidney disease with chronic kidney disease stage III ([facility]) (12/05/2018) DDD (degenerative disc disease), lumbar (10/31/2018) History of gastric bypass (01/27/2018) Type 2 diabetes mellitus with stage 3 chronic kidney disease, without long-term current use of insulin ([facility]) (01/27/2018) Unspecified hypertensive kidney disease with chronic kidney disease stage I through stage IV, or unspecified(403.90) (01/27/2018) JERONIMO (generalized anxiety disorder) (01/27/2018) History of lymphoma (11/27/2017) Adjustment disorder with depressed mood (03/11/2017) Kidney disease, chronic, stage III (GFR 30-59 ml/min) (05/07/2016) Severe aortic stenosis (12/06/2015) Hypertension goal BP (blood pressure) < 140/90 (07/20/2015) Lichen (02/09/2015) Degenerative disc disease, cervical (12/25/2013) Spondylosis of lumbar joint (12/25/2013) Foraminal stenosis of lumbar region (12/25/2013) Special screening for malignant neoplasms, colon (11/03/2010) Special screening for osteoporosis (08/16/2010) Respiratory symptoms (07/28/2010) Family hx-breast malignancy (05/16/2010) Mitral valve disorder (05/16/2010) Severe obesity with body mass index (BMI) of 35.0 to 39.9 with serious comorbidity (HCC) (05/16/2010) Anemia (01/20/2010) Vitamin D deficiency (01/20/2010) Backache (01/18/2010) HTN, goal below 140/80 (12/28/2009) Dyslipidemia, goal LDL below 100 (11/16/2009) MEDICATION USE AGREEMENT (10/02/2009) Type 2 diabetes mellitus with hemoglobin A1c goal of less than 8.0% ([facility]) (09/29/2009) Type 2 diabetes mellitus with hemoglobin A1c goal of less than 7.0% ([facility]) (04/13/2009) Dyslipidemia, goal to be determined (04/13/2009) Intestinal postoperative nonabsorption (05/19/2008) LYMPHOMA NEC UNSPEC SITE (07/29/2006) ABD./PELVIC SWELL., MASS OR LUMP, PERIUMBILIC (02/13/2006) ADVANCE DIRECTIVE INFORMATION (06/06/2005) SKIN HYPERTRO-ATROPH NOS (10/18/2004) PANNICULITIS, UNSP SITE (03/16/2004) Incisional hernia (03/16/2004) Knee joint replacement status (07/26/2003) Menopause (02/15/2003) Allergic rhinitis (03/04/2002) Morbid obesity, BMI not known (HCC) HTN, goal below 140/90 Hypothyroidism Esophageal reflux Major depressive disorder GENERALIZED ANXIETY DIS Panic disorder Current Medications oxyCODONE-Acetaminophen 5-325 MG Oral Tablet (Percocet), 1 Tablet, Oral, TID PRN Vitamin D3 50 MCG (2000 UT) Oral Capsule, 2,000 Units, Oral, Daily(AM) Vitron-C 65-125 MG Oral Tablet (Iron-Vitamin C 65-125 mg per tab), 1 Tablet, Oral, BID(AM/PM) Carvedilol 12.5 MG Oral Tablet (Coreg), 12.5 mg, Oral, BID(AM/PM) Wegovy 0.5 MG/0.5ML Subcutaneous Solution Auto-injector (Semaglutide-Weight Management), 0.5 mg, Subcutaneous, Q Week OneTouch Verio w/Device Kit, Use up to 4 times a day E11.9 Ketorolac Tromethamine 0.5 % Ophthalmic Solution (Acular), INSTILL 1 DROP INTO THE RIGHT EYE THREE TIMES DAILY amLODIPine Besylate 10 MG Oral Tablet (Norvasc), 10 mg, Oral, Daily(AM) tiZANidine HCl 4 MG Oral Tablet (Zanaflex), 2 mg, Oral, Q8H PRN Venlafaxine HCl 37.5 MG Oral Tablet (Effexor), 75 mg, Oral, Daily(Non-Specified) Olmesartan Medoxomil 40 MG Oral Tablet (Benicar), 40 mg, Oral, Daily(AM) traZODone HCl 150 MG Oral Tablet (Desyrel), 150 mg, Oral, HS rOPINIRole HCl 0.25 MG Oral Tablet (Requip), TAKE ONE TABLET BY MOUTH THREE TIMES A DAY Atorvastatin Calcium 40 MG Oral Tablet (Lipitor), TAKE ONE TABLET BY MOUTH EVERY DAY. Levothyroxine Sodium 100 MCG Oral Tablet (Levoxyl), 100 mcg, Oral, Daily 0630 Furosemide 40 MG Oral Tablet (Lasix), 40 mg, Oral, Daily(AM) Apixaban 5 MG Oral Tablet (Eliquis), 5 mg, Oral, BID(AM/PM) [employer] VerAubrey In Vitro Strip (Glucose Blood), Use up to 4 times a day E11.9 Cyanocobalamin 1000 MCG Oral Tablet, 1,000 mcg, Oral, Daily(AM) PreserVision AREDS 2 Oral Capsule, 1 Capsule, Oral, BID(AM/PM) Aspirin 81 MG Oral Tablet Delayed Release, 81 mg, Oral, Daily(AM) (Patient not taking: Reported on 09/10/2024) prednisoLONE Acetate 1 % Ophthalmic Suspension (Pred Forte), INSTILL 1 DROP INTO RIGHT EYE THREE TIMES DAILY. Albuterol Sulfate HFA 108 (90 Base) MCG/ACT Inhalation Aerosol Solution, INHALE 2 PUFFS BY MOUTH EVERY 4 HOURS NEEDED FOR SHORTNESS OF BREATH Diclofenac Sodium 1 % External Gel (Voltaren), Apply topically to affected area 4 times a day. Apply to left shoulder Allergies: Patient has no known allergies. Past Medical History: has a past medical history of CVA (cerebral vascular accident) ([facility]) (07/20/2022), Depressive disorder, not elsewhere classified, DM type 2, goal A1c below 7 (09/29/2009), ERM OS (epiretinal membrane,left eye), Esophageal reflux, Generalized anxiety disorder, HTN, goal below 140/90, Hypothyroidism,Incipient senile cataract, Lymph node enlargement, Morbid obesity, BMI not known ([facility]), Nonexudative macular degeneration, Organic sleep disorder, Other malignant lymphomas, unspecified site, extranodal and solid organ sites (07/29/2006), Panic disorder, and Venous tributary (branch) occlusion of retina. Past Surgical History: has a past surgical history that includes information (08/02/2002); information (06/02 - [facility]); totalhysterectomy (12/02/1997); information (04/03/2004); colonoscopy, outside procedure (05/13/2009); Arthroplasty Knee Total; Treatment of Extensive Retinopathy, Photocoagulation (10/02/2013); Colonoscopy, Diagnostic (Rectum) (04/01/2014); EGD, Flexible, Diagnostic (04/01/2014); L-/S-spine Paravertebral facet Inj,1 level (Left, 05/12/2015); L-/S-spine Paravertebrl facet Inj,2 levels (Left, 05/12/2015); Injection Lumbar/Sacral (N/A, 03/13/2021); Sacroiliac Joint Inject w/Guidance (Left, 02/05/2022); Inject Dx/Ther Substance Interlaminar Lumbar/Sacral W Image Guide (N/A, 04/02/2022); anesthesia for cat or mri scan (N/A, 03/14/2023); EGD, w/Endoscopic US (N/A, 04/23/2023); EGD, Flexible, w/Cyst Drainage (N/A, 04/23/2023); EGD, w/Endoscopic US (N/A, 05/07/2023); ERCP, Diagnostic, Specimen collection (N/A, 05/07/2023); Coronary Angiography w/left heart Cath (Right, 08/09/2023); ERCP w/ Stent Exc hange (N/A, 08/29/2023); EGD, w/Endoscopic US (N/A, 08/29/2023); Replace Aortic Valve, PercutaneousFemoral (Bilateral, 10/01/2023); Replace Aortic Valve, Percutaneous Femoral (Bilateral, 10/01/2023); and Inject Dx/Ther Substance Interlaminar Lumbar/Sacral W Image Guide (N/A, 08/07/2024). Social History: reports that she has never smoked. She has been exposed to tobacco smoke. She has never used smokeless tobacco. She reports that she does not drink alcohol and does not use drugs. Family History: family history includes Breast Cancer in her sister; Breast ca/thyroid/DM in her sister; COPD/EtOHism/DM in her father; DM in her brother, brother, mother, and sister; Other in an other family member; ruptured cerebral aneurysm in her brother. Anesthesia History Type of Anesthesia: General Endotracheal and Caudal block Anesthesia reaction: No History of surgical complications: none Personal history of venous thromboembolic disease: uncertain Physical Exam Vitals: 09/10/24 1229 Temp: 37.2 C (99 F) Pulse: 60 Resp: 16 SpO2: 100% BP: 146/72 BMI: 28.62 General: alert, healthy, and no distress Head: Normocephalic, No masses, lesions, tenderness or abnormalities Eye Exam: PERRLA, extraocular movements intact, conjunctiva are pink and non- injected, sclera clear Ears: External ears normal, Canals clear, TM's Normal Nose: no mucosal erythema, no mucosal edema, no purulent discharge Oropharynx: no exudate, no erythema, lips, buccal mucosa, and tongue normal, and mucous membranes are moist Neck: supple, no adenopathy Lymph: no palpable lymphadenopathy Heart: regular rate & rhythm, and no gallops. Murmur noted. Lungs: chest symmetric with normal AP diameter, no chest deformities noted, no chest wall tenderness, lungs clear to auscultation Pulses: radial=2/4 Abdomen: abdomen soft, non-tender, and normal bowel sounds Back: back symmetric, no curvature, no costovertebral angle tenderness, range of motion is normal Extremities: less than 2 second capillary refill, no joint deformities, effusion, or inflammation Neuro Exam: alert & oriented x 3 with fluent speech, no focal motor/sensory deficits, gait normal, reflexes normal and symmetric Skin: skin color, texture, turgor are normal, no rashes or significant lesions Labs reviewed and are significant for: Labs done at [facility]. EKG by my review is significant for: Sinus bradycardia with heart rate of 53 beats per minute. Surgical Risk Scoring Revised Cardiac Risk Index (RCRI) High-risk type of surgery (examples include vascular and any open intraperitoneal or intrathoracic procedures): 1=Yes History of ischemic heart disease (history of myocardial infarction or positive exercise test, current compliant of chest pain considered to be secondary to myocardia ischemia, use of nitrate therapy, or ECG with pathological Q waves; do not count prior coronary revascularization procedure unless one of the other criteria for ischemic heart disease is present): 0=No History of heart failure: 0=No History of cerebrovascular disease: 1=Yes Diabetes mellitus requiring treatment with insulin: 0=No Preoperative serum creatinine >2.0 mg/dL (177 micromol/L): 1=Yes Pt has revised cardiac index score of: Three or more risk factors- (95% CI: 2.8-7.9) Assessment and Plan Preop examination (Primary) - if cleared by Cardiology feel that the patient can continue with surgery as well. Monitor blood pressures to make sure numbers are coming down. - I was unable to access her labs which were done at [facility]. As long as labs within normal limits feel patient can continue to proceed. - see Cardiology notes for further info on the patient's cardiovascular status Functional Assessment They are able to walk up a flight of stairs, walk two blocks at a moderate pace, and grocery shop. The patient's functional status is adequate (equal to 4 METS). 1 MET: 4 METs: 4-10 METs: Can take care of self, such as eat, dress or use the toilet. Can walk to block or go up a flight of steps. Can do heavy house work. Surgical Risk Assessment Patient is high medical risk for the listed procedure. Medication adjustments: Discontinue Eliquis 3 days prior to surgery. Ideally would be great if she could continue aspirin 81 mg daily Additional consults or testing: Patient was assessed by Cardiology and deemed at moderate risk for surgery. I spent a total of 20-29 minutes (exact time 25 mins) on the date of service in preparation, delivery, and documentation of the care provided to Shelly Heller excluding any time spent in the performance of separately billed services or time spent by another provider/QHP. [facility] documented in this encounter Nursing Notes * Kimber Chan CCMA - 09/10/2024 12:21 PM EDT Chief Complaint Patient presents with pre-op exam 09/22/2024 Dr. Molly ARIZA Spine Surgery Pt is here today for a pre op exam. Surgery information is noted above. Pt has no concerns regarding the surgery. Pt had an EKG done 09/07 and got her labs done as well. documented in this encounter Plan of Treatment Upcoming Encounters Date Type Department Care Team (Late st Contact Info) Description 09/14/2024 10:15 AM EDT Pharmacy Pharmacy, [address] [address] Clinic, [place] [address] [place] [address] 09/17/2024 12:40 PM EDT Nurse Only Ancillary 1st Floor, [place] [address] [address] [address] Nurse Mehreen Reinoso [address] [address] 10/06/2024 2:30 PM EST Office Visit Cardiology, [place] [address] [place] [address] Jaylyn Page PA-C [address] [place] [address] 10/15/2024 10:00 AM EST Office Visit [facility], [address] [address] Sanjiv Hernandez CRNP [address] [place] [address] 11/18/2024 1:40 PM EST Office Visit Nephrology, [address] [address] Obinna Blank MD [address] [place] [id number] 12/10/2024 10:00 AM EST Laboratory Laboratory, [address] [phone] [address] 03/18/2025 10:00 AM EDT Laboratory Laboratory, [address] [phone] [address] 03/25/2025 8:00 AM EDT Office Visit [facility] [address] [place] [address] [id number] Jessica Ansari MD [address] [address] Scheduled Procedures Name Priority Associated Diagnoses Date/Ti me COLONOSCOPY FLEXIBLE PROXIMA L DIAGNOSTIC Recall Special screening for malignant neoplasms, colon Health Maintenance Due Date Last Done Comments Adult Wellness Visit 2010 HOME BP CUFF VALIDATION YEARLY 06/18/2018 06/18/2017 COVID-19 Vaccine ( season) 2024 08/30/2021, 02/07/2021, 01/10/2021 Depression Screening 11/11/2024 11/11/2023 GFR 02/15/2025 08/18/2024, 03/12/2023, 12/27/2023, Additional history exists Albumin/Creatinine Ratio 05/01/2025 024, 06/24/2023, 06/07/2023, Additional history exists CKD HGB USE SMARTSET 14408 08/18/202508/18, 08/18/2024, 06/25/2024, Additional history exists CKD PHOS USE SMARTSET 25294 08/18/202508/02, 02/05/2023, 12/09/2018, Additional history exists HbA1c 08/18/2025 08/18/2024, 110 08/2023, 09/03/2023, Additional history exists TSH 08/18/2025 08/18/2024, 120 05/2023, 09/30/2023, Additional history exists DXA Scan 08/05/2027 08/05/2020, 110 04/2013, 10/06/2013, Additional history exists DTap/Tdap Vaccines [...] this encounter Medical Devices Implanted Type Area Comparator Operator Device Identifier Shelf Expiration Date Model / Serial / Lot Sureclip 16mm 235cm - [id number] Implanted:Qty: 1 on 04/23/2023 by Deisy Tellez DO at OR [facility] [id number] 11/17/2024 [id number] / / [id number] Valve Dinh 3 Ultra 23mm - [id number] Implanted:Qty: 1 on 10/01/2023 by Mejia Brewster MD at [facility] [employer] [id number] 09/12/2024 [id number] / / documented as of this encounter Visit Diagnoses Diagnosis Preop examination- Primary Preoperative examination, unspecified documented in this encounter Advance Directives * Full Code [...] Discussed due to patient's condition Care Teams Head Bander And Liner Operator Relationship Specialty Start Date End Date Jessica Ansari MD [address] [place] [address] [address] PCP - General Family Medicine 12/05/22 documented as of this encounter
--- OUTSIDE RECORDS SUMMARY | 2024-09-22 11:36 | External Medical Summary | Summary of Care ---
Author Name Unknown Organization [facility] Address [address] [place] [address] Phone [phone] Care Team Providers Care Shell Shop Supervisor Name Role Phone Jessica Ansari MD Primary Care Provider Reason for Visit * Reason Onset Date Comments Medication Question 09/16/2024 Stop Eliquis Encounter Details Date Type Department Care Team ([facility] st Contact Info) Description [facility] [address] [facility] [place] [address] Mago Kaufman MD [address] [place] [address] Medication Question (Stop Eliquis) Allergies [...] goal of less than 8.0% ([facility]) TAKE ONE TABLET BY MOUTH [...] vein occlusion, left eye, stable,Atherosclerosi s of [place] coronary artery without angina pectoris, unspecified whether [place] or transplanted heart,Dyslipidemia, goal LDL below 100 [...] aortic valve replacement ) 10/02/2023 Atherosclerosis of [place] co ronary artery without angina pectoris 08/03/2022 [...] mRNA, LNP-s, No Pre serve, 2-Dose Series ([employer]) 08/30/2021,02/07/2021,01/10/2021 HEP A - Hepatitis A (Adult [...] encounter Miscellaneous Notes * Telephone Encounter - Heather Toledo LPN - 09/16/2024 11:54 AM EDT Per Jaylyn's office note 09/07/24. - recommend to hold Eliquis 3 days prior to procedure to minimize bleeding risk, ideally would continue aspirin. Pt notified via phone and states understanding. * Telephone Encounter - Jayshree Goldsmith OSA - 09/16/2024 11:36 AM EDT Person calling: pt Relationship to patient: Phone/Fax to return call: [phone] Reason for call(brief): pt called asking when [...] PM EDT Nurse Only Ancillary 1st Floor, [address] [place] [address] [place], Nurse Fp [address] [place] [address] 10/06/2024 2:30 PM EST Office Visit Cardiology, [address] [address] Jaylyn Page PA-C [address] [place] [address] 10/15/2024 10:00 AM EST Office Visit [facility], [address] [address] Sanjiv Hernandez CRNP [address] [place] [address] 11/18/2024 1:40 PM EST Office Visit Nephrology, [address] [address] Obinna Blank MD [address] [place] [address] 12/10/2024 10:00 AM EST Laboratory Laboratory, [address] [place] [phone] [place] [facility] [address] [place], [place] [address] [address] 03/18/2025 10:00 AM EDT Laboratory Laboratory, [place] [address] [facility] [place] [phone] [facility] [address] [facility] [place] [address] 03/25/2025 8:00 AM EDT Office Visit [facility] [address] [place] [phone] Jessica Ansari MD [address] [place] [address] Scheduled Procedures Name Priority Associated Diagnoses Date/Ti [...] Additional history exists CKD HGB USE SMARTSET 72522 08/18/202508/18, 08/18/2024, 06/25/2024, Additional history exists CKD PHOS USE SMARTSET 56157 08/18/202508/02, 02/05/2023, 12/09/2018, Additional history exists HbA1c 08/18/2025 08/18/2024, 1108/2023, 09/03/2023, Additional history exists TSH 08/18/2025 08/18/2024, 12/05/2023, 09/30/2023, Additional history exists DXA Scan 08/05/2027 08/05/2020, 04/2013, 10/06/2013, Additional history exists DTap/Tdap Vaccines [...] this encounter Medical Devices Implanted Type Area Light Truck Driver Device Identifier Shelf Expiration Date Model / Serial / Lot Sureclip 16mm 235cm - [id number] Implanted:Qty: 1 on 04/23/2023 by Deisy Tellez DO at OR [facility] [employer] [id number] 11/17/2024 [id number] / / [id number] Valve Dinh 3 Ultra 23mm - [id number] Implanted:Qty: 1 on 10/01/2023 by Mejia Brewster MD at [facility] [employer] [id number] 09/12/2024 [id number] / / documented as of this encounter [...] Discussed due to patient's condition Care Teams Shell Shop Supervisor Relationship Specialty Start Date End Date Jessica Ansari MD [address] [place] [address] PCP - General Family Medicine 12/05/22 documented as of this encounter
--- OUTSIDE RECORDS SUMMARY | 2024-09-22 11:36 | External Medical Summary | Summary of Care ---
Author Name Unknown Organization [facility] Address [address] [place] [address] Phone [phone] Care Team Providers Care Body Stylist Name Role Phone Manjinder Mccloud MD Primary Care Provider [phone] Reason for Visit * Reason Comments Medication Refill Encounter Details Date Type Department Care Team (Late st Contact Info) Description 09/08/[address] [facility] [address] [place] [phone] Manjinder Mccloud MD [address] [place] [address] Encounter for long-term opiate analgesic use; Degenerative disc disease, cervical Allergies No known active allergiesdocumented as of this encounter (statuses as of 09/11/2024) Medications Medication Sig Dispensed Refills Start Date End Date Status PreserVision AREDS 2 Oral Capsule Take 1 Capsule by mouth in the morning and 1 Capsule before bedtime. Active Cyanocobalamin 1000 MCG Oral TabletIndications:Vi tamin B12 deficiency Take 1 Tablet by mouth in the morning. 15 Tablet 12/05/2022 Active Diclofenac Sodium 1 % External Gel (Voltaren)Indication s:Chronic left shoulder pain Apply topically to affected area 4 times a day. Apply to left shoulder 100 g 1 08/27/2023 Active Apixaban 5 MG Oral Tablet (Eliquis) Take 1 Tablet by mouth in the morning and 1 Tablet before bedtime. 180 Tablet 3 10/10/2023 Active OneTouch Verio In Vitro Strip (Glucose Blood)Indications:Pr ediabetes Use up to 4 times a day E11.9 100 Strip 11 10/10/2023 Active Furosemide 40 MG Oral Tablet (Lasix) Take 1 Tablet by mouth in the morning. 90 Tablet 3 10/25/2023 Active Levothyroxine Sodium 100 MCG Oral Tablet (Levoxyl)Indications :Acquired hypothyroidism Take 1 Tablet by mouth daily first thing in the morning. 90 Tablet 3 11/11/2023 Active Atorvastatin Calcium 40 MG Oral Tablet (Lipitor) TAKE ONE TABLET BY MOUTH EVERY DAY. 90 Tablet 3 11/19/2023 5 Active rOPINIRole HCl 0.25 MG Oral Tablet (Requip)Indications: Type 2 diabetes mellitus with hemoglobin A1c goal of less than 8.0% (HCC) TAKE ONE TABLET BY MOUTH THREE TIMES A DAY 270 Tablet 3 01/24/2024 5 Active traZODone HCl 150 MG Oral Tablet (Desyrel)Indications :Insomnia due to other mental disorder Take 1 Tablet by mouth at bedtime. 60 Tablet 5 04/23/2024 Active Albuterol Sulfate HFA 108 (90 Base) MCG/ACT Inhalation Aerosol Solution INHALE 2 PUFFS BY MOUTH EVERY 4 HOURS NEEDED FOR SHORTNESS OF BREATH 18 g 5 06/17/2024 5 Active Olmesartan Medoxomil 40 MG Oral Tablet (Benicar) Take 1 Tablet by mouth in the morning. 90 Tablet 1 06/18/2024 Active tiZANidine HCl 4 MG Oral Tablet (Zanaflex)Indication s:Degenerative disc disease, cervical Take 1/2 Tablet by mouth every 8 hours as needed for Muscle spasms. 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 3 mL 1 09/04/2024 Active Carvedilol 12.5 MG Oral Tablet (Coreg)Indications:H TN, goal below 140/80 Take 1 Tablet by mouth in the morning and 1 Tablet before bedtime. 360 Tablet 3 09/07/2024 Active Aspirin 81 MG Oral Tablet Delayed Release Take 1 Tablet by mouth in the morning. 09/07/2024 Active Vitamin D3 50 MCG (1999 UT) Oral Capsule Take 1 Capsule by mouth in the morning. 30 Capsule 5 09/10/2024 Active oxyCODONE-Acetaminop hen 5-325 MG Oral Tablet (Percocet)Indication s:Encounter for long-term opiate analgesic use,Degenerative disc disease, cervical Take 1 Tablet by mouth 3 times a day as needed for Other (morning, noon, and evening for chronic pain). 70 Tablet 09/10/2024 Active Vitron-C 65-125 MG Oral Tablet (Iron-Vitamin C 65-125 mg per tab)Indications:Low iron Take 1 Tablet by mouth in the morning and 1 Tablet before bedtime. 180 Tablet 3 09/09/2024 Active Vitamin D3 50 MCG (1999 UT) Oral Capsule Take 1 Capsule by mouth in the morning. 30 Capsule 5 09/05/2023 Discontinue d(Refill) oxyCODONE-Acetaminop hen 5-325 MG Oral Tablet (Percocet)Indication s:Encounter for long-term opiate analgesic use,Degenerative disc disease, cervical Take 1 Tablet by mouth 3 times a day as needed for Other (morning, noon, and evening for chronic pain). 70 Tablet 08/17/2024 4 Discontinue d(Refill) documented as of this encounter (statuses as of 09/11/2024) Active Problems Problem Noted Date Diagnosed Date Tributary (branch) retinal vein occlusion, left eye, stable 02/26/2024 Hyperparathyroidism 02/26/2024 Hemiplegia and hemiparesis f ollowing cerebral infarction affecting right dominant side 11/11/2023 S/P TAVR (transcatheter aortic valve replacement ) 10/02/2023 Atherosclerosis of [place] co ronary artery without angina pectoris 08/03/2022 [...] as of this encounter (statuses as of 09/11/2024) Resolved Problems Problem Noted Date Diagnosed Date [...] HYPERTRO-ATROPH NOS 10/18/200401/2010 PANNICULITIS, UNSP SITE 03/16/2004 12/0 01/2010 Incisional hernia 03/16/2004 07/30/2017 Menopause 02/15/2003 07/30/2017 [...] as of this encounter (statuses as of 09/11/2024) Immunizations Name Administration Dates Next Due COVID-19 mRNA, LNP-s, No Pre serve, 2-Dose Series ([employer]) 08/30/2021,02/07/2021,01/10/2021 HEP A - Hepatitis A (Adult [...] TDAP, Age 7 and older, IM (Adacel) 09/30/2009(De anud: Patient Refused) Zoster Vaccine Recombinant (Shingrix) 10/30/2021 [...] (15 years old or older) No 07/20/20 22 Cognitive Status Response Date of Assessm ent Because of a physical, menta l, or emotional condition, do you have serious difficulty concentrating, remembering, or making decisions? (5 years old or older) No 07/20/2022 documented as of this encounter Miscellaneous Notes * Telephone Encounter - Jaylyn Delgado CPhT - 09/11/2024 11:59 AM EDT Pt calling to request oxyCODONE-Acetaminophen 5-325 MG Oral Tablet (Percoce . Informed pt that RX is available at their pharmacy. Pt verbalized understanding and stated they will check with their pharmacy regarding this medication. Thank you, Jaylyn Delgado Stained Glass Joiner [facility] 09/11/2024,11:59 AM * Telephone Encounter - Manjinder Mccloud MD - 09/10/2024 9:48 AM EDTSigned Prescriptions: Disp Refills Vitamin D3 50 MCG (1999 UT) Oral Capsule 30 Cap*5 Sig: Take 1 Capsule by mouth in the morning. Authorizing Provider: MANJINDER MCCLOUD oxyCODONE-Acetaminophen 5-325 MG Oral Tabl*70 Tab*0 Sig: Take 1 Tablet by mouth 3 times a day as needed for Other (morning, noon, and evening for chronic pain). Authorizing Provider: MANJINDER QUINTERO * Telephone Encounter - Manjinder Mccloud MD - 09/10/2024 9:47 AM EDT NEEDS MTM STUART, please remind patient these need to be kept in order to maintain an opioid rx * Telephone Encounter - May Wright [facility] - 09/10/2024 9:32 AM EDTPending Prescriptions: Disp Refills Vitamin D3 50 MCG (1999) Oral Capsule 30 Cap*5 Sig: Take 1 Capsule by mouth in the morning. oxyCODONE-Acetaminophen 5-325 MG Oral Tabl*70 Tab*0 Sig: Take 1 Tablet by mouth 3 times a day as needed for Other (morning, noon, and evening for chronic pain). ---- * Telephone Encounter - May Wright [facility] - 09/10/2024 9:32 AM EDT I have reviewed the patients controlled substance dispensing history in the Prescription Drug Monitoring Program in compliance with the [facility] regulations before prescribing a controlled substance. PDMP checked on 09/10/2024. Pending Prescriptions: Disp Refills Vitamin D3 50 MCG (1999) Oral Capsule 30 Cap*5 Sig: Take 1 Capsule by mouth in the morning. oxyCODONE-Acetaminophen 5-325 MG Oral Tab*70 Tab*0 Sig: Take 1 Tablet by mouth 3 times a day as needed for Other (morning, noon, and evening for chronic pain). Last Visit: 09/04/2024 (in office), Visit date not found (telemedicine) Next Visit: 09/10/2024 Date medication was last filled: 08/17/24 Date medication is due for refill: 09/09/24 Pharmacy: [facility] Is this request for a controlled substance? Yes and Urine Drug Screen was completed Toxicology results: Results for orders placed or performed in visit on 02/26/24 PAIN MANAGEMENT DRUG PANEL, URINE W/ INTERPRETATION Result Value Compliance Interpretation Based on the medication information provided: The positive oxycodone screening result is CONSISTENT with oxycodone use. Confirmatory testing is available upon request. Amphetamines Screen, U Negative Benzodiazepines Screen, U Negative Cannabinoids Screen, U Negative Cocaine Metabolite Screen, U Negative Fentanyl Screen, U Negative Hydrocodone Screen, U Negative Methadone Metabolite Screen, U Negative Morphine/Codeine Screen, U Negative Oxycodone Screen, U Positive (A) Valid Interpretation Normal Creatinine, U 88 Narrative Cutoff Concentrations: Drug Level Amphetamines 500 ng/mL Benzodiazepines 100 ng/mL Cannabinoids 50 ng/mL Cocaine Metabolite 150 ng/mL Fentanyl 1 ng/mL Hydrocodone / Hydromorphone 300 ng/mL Methadone Metabolite 100 ng/mL Morphine / Codeine 300 ng/mL Oxycodone / Oxymorphone 100 ng/mL Screening results are presumptive and can only be used for medical purposes. Confirmatory testing is available upon request. *Note: Due to a large number of results and/or encounters for the requested time period, some results have not been displayed. A complete set of results can be found in Results Review. Please approve if appropriate. May Maynard Clinical Pharmacist [facility] ([facility]) [phone] 09/10/2024, 9:32 AM documented in this encounter Plan of Treatment Upcoming Encounters Date Type Department Care Team (Late st Contact Info) Description 09/14/2024 10:15 AM EDT Pharmacy Pharmacy, [address] [address] Clinic, [address] [address] 09/17/2024 12:40 PM EDT Nurse Only Ancillary 1st Floor, [place] [address] [place] [phone] Nurse Mehreen Reinoso [address] [place] [phone] 10/06/2024 2:30 PM EST Office Visit Cardiology, [address] [phone] Jaylyn Page PA-C [address] [place] [address] 10/15/2024 10:00 AM EST Office Visit [facility], [address] [address] Sanjiv Hernandez CRNP [address] [place] [address] 11/18/2024 1:40 PM EST Office Visit Nephrology, [address] [address] Obinna Blank MD [address] [place] [address] 12/10/2024 10:00 AM EST Laboratory Laboratory, [address] [phone] [address] 03/18/2025 10:00 AM EDT Laboratory Laboratory, [address] [address] [address] 03/25/2025 8:00 AM EDT Office Visit [facility] [address] [place] [phone] Manjinder Mccloud MD [address] [place] [phone] Scheduled Procedures Name Priority Associated Diagnoses Date/Ti me COLONOSCOPY FLEXIBLE PROXIMA L DIAGNOSTIC Recall Special screening for malignant neoplasms, colon Health Maintenance Due Date Last Done Comments Adult Wellness Visit 2010 HOME BP CUFF VALIDATION YEARLY 06/18/2018 06/18/2017 COVID-19 Vaccine (4 - 2024-25 season) 2024 08/30/2021, 02/07/2021, 01/10/2021 Depression Screening 11/11/2024 11/11/2023 GFR 02/15/2025 08/18/2024, 01/31, 12/27/2023, Additional history exists Albumin/Creatinine Ratio 05/01/2025 024, 06/24/2023, 06/07/2023, Additional history exists CKD HGB USE SMARTSET 47303 08/18/202508/18, 08/18/2024, 06/25/2024, Additional history exists CKD PHOS USE SMARTSET 96546 08/18/202508/02, 02/05/2023, 12/09/2018, Additional history exists HbA1c [...] this encounter Medical Devices Implanted Type Area Personal Support Worker Device Identifier Shelf Expiration Date Model / Serial / Lot Yomiclip 16mm 235cm - [id number] Implanted:Qty: 1 on 04/23/2023 by Deisy Tellez DO at OR [facility] [employer] ENDOSCOPY [id number] 11/17/2024 [id number] / / [id number] Valve Dinh 3 Ultra 23mm - [id number] Implanted:Qty: 1 on 10/01/2023 by Mejia Brewsetr MD at [facility] [employer] [id number] 09/12/2024 [id number] / / documented as of this encounter Visit Diagnoses Diagnosis Encounter for long-term opiate analgesic use Encounter for long-term (current) use of other medications Degenerative disc disease, cervical Degeneration of cervical intervertebral disc documented in this encounter Advance Directives * [...] Discussed due to patient's condition Care Teams Body Stylist Relationship Specialty Start Date End Date Manjinder Mccloud MD [address] [place] [address] PCP - General Family Medicine 12/05/22 documented as of this encounter
--- OUTSIDE RECORDS SUMMARY | 2024-09-22 11:36 | External Medical Summary | Summary of Care ---
Author Name Unknown Organization [facility] Address [address] [place] [address] Phone [phone] Care Team Providers Care Biodiesel Engineering Manager Name Role Phone Jessica Ansari MD Primary Care Provider [phone] Reason for Visit * Reason Comments Dosage Adjustment Via Phone (anticoag Cl inic) Anemia Follow-Up Encounter Details Date Type Department Care Team (Late st Contact Info) Description 09/14/2024 10:15 AM EDT Pharmacy Pharmacy, [place] [address] [place], [place] [phone] Clinic, Anemia [address], [place] [phone] Anemia, unspecified type* Allergies No known active allergiesdocumented as of this encounter (statuses as of 09/14/2024) Medications Medication Sig Dispensed Refills Start Date [...] hemoglobin A1c goal of less than 8.0% ([facility]) TAKE ONE TABLET BY MOUTH [...] vein occlusion, left eye, stable,Atherosclerosi s of [place] coronary artery without angina pectoris, unspecified whether [place] or transplanted heart,Dyslipidemia, goal LDL below 100 [...] morning. 09/07/2024 Active Vitamin D3 50 MCG (2000 UT) Oral Capsule Take 1 Capsule by [...] as of this encounter (statuses as of 09/14/2024) Active Problems Problem Noted Date Diagnosed Date Tributary (branch) retinal vein occlusion, left eye, stable 02/26/2024 Hyperparathyroidism 02/26/2024 Hemiplegia and hemiparesis f ollowing cerebral infarction affecting right dominant side 11/11/2023 S/P TAVR (transcatheter aortic valve replacement ) 10/02/2023 Atherosclerosis of [place] co ronary artery without angina pectoris 08/03/2022 [...] as of this encounter (statuses as of 09/14/2024) Resolved Problems Problem Noted Date Diagnosed Date [...] HYPERTRO-ATROPH NOS 10/18/200401/2010 PANNICULITIS, UNSP SITE 03/16/2004 1201/2010 Incisional hernia 03/16/2004 07/30/2017 Menopause 02/15/2003 07/30/2017 [...] as of this encounter (statuses as of 09/14/2024) Immunizations Name Administration Dates Next Due COVID-19 mRNA, LNP-s, No Pre serve, 2-Dose Series ([employer]) 08/30/2021,02/07/2021,01/10/2021 HEP A - Hepatitis A (Adult [...] Age 7 and older, IM (Adacel) 09/30/2009(De carey: Patient Refused) Zoster Vaccine Recombinant (Shingrix) 10/30/2021 [...] as of this encounter Progress Notes * Tre Winston, [facility] ED - 09/14/2024 3:14 PM EDT Patient Phone Numbers Called patient to review labs from 08/18/24. Hgb: 10.6 g/dL TSAT: 14 % Ferritin: 108 ng/mL Hgb is adequate for CKD target range. Iron studies within target range. Per chart review patient istaking Vitron-C BID and cyancobalamin 1000mcg daily and appears to be tolerating it without issue. Plan: Due to no anemia pharmacological intervention at this time or for >6 months. Will discharge once connected with patient. Thanks for allowing us to participate in the patient's care. Tre Winston, Pharm.D Clinical Pharmacist [facility] Cardiology 09/14/2024, 3:16 PM documented in this encounter Plan of Treatment Upcoming Encounters Date Type Department Care Team (Late st Contact Info) Description 09/17/2024 12:40 PM EDT Nurse Only Ancillary 1st Floor, [address] [address] [place], Nurse [address] [place] [address] 10/06/2024 2:30 PM EST Office Visit [address] [address] Jaylyn Page PA-C [address] [place], [place] [address] 10/15/2024 10:00 AM EST Office Visit [facility], [address] [place] [address] Sanjiv [facility] CR[facility] [address] [facility] [address] 11/18/2024 1:40 PM EST Office Visit Nephrology, [address] [place] [address] Obinna Blank MD 400 [place] [address] 12/10/2024 10:00 AM EST Laboratory Laboratory, [address] [phone] [address] 03/18/2025 10:00 AM EDT Laboratory Laboratory, [address] [address] [address] 03/25/2025 8:00 AM EDT Office Visit [facility] [address] [place] [address] Jessica Ansari MD [address] [place] [address] Scheduled Procedures Name Priority Associated Diagnoses Date/Ti [...] Additional history exists CKD HGB USE SMARTSET 57810 08/18/202508/18, 08/18/2024, 06/25/2024, Additional history exists CKD PHOS USE SMARTSET 32190 08/18/202508/02, 02/05/2023, 12/09/2018, Additional history exists HbA1c 08/18/2025 08/18/2024, 1108/2023, 09/03/2023, Additional history exists TSH 08/18/2025 08/18/2024, 1205/2023, 09/30/2023, Additional history exists DXA Scan 08/05/2027 [...] this encounter Medical Devices Implanted Type Area Jewel Flat Surfacer Device Identifier Shelf Expiration Date Model / Serial / Lot Sureclip 16mm 235cm - [id number] Implanted:Qty: 1 on 04/23/2023 by Deisy Tellez DO at OR [facility] [employer] ENDOS[employer] [id number] 11/17/2024 [id number] / / [id number] Valve Dinh 3 Ultra 23mm - [id number] Implanted:Qty: 1 on 10/01/2023 by Mejia Brewster MD at [facility] [employer] [id number] 09/12/2024 [id number] / / documented as of this encounter Visit Diagnoses Diagnosis Anemia, unspecified type- Primary documented in this encounter Advance Directives * [...] Discussed due to patient's condition Care Teams Biodiesel Engineering Manager Relationship Specialty Start Date End Date Jessica Ansari MD [address] [place] [address] PCP - General Family Medicine 12/05/22 documented as of this encounter
--- OUTSIDE RECORDS SUMMARY | 2024-09-22 11:36 | External Medical Summary | Summary of Care ---
Author Name Unknown Organization [facility] Address [address] [place] [address] Phone [phone] Care Team Providers Care Disposal Man Name Role Phone Jessica Ansari MD Primary Care Provider [phone] Reason for Visit * Reason Onset Date Comments Test Results 09/10/2024 Encounter Details Date Type Department Care Team ([facility] st Contact Info) Description 09/10/2024 [facility]phone [facility] [address] [place] [address] Jaylyn Page PA-C [address] [facility] [place] [address] Test Results Allergies No known active allergiesdocumented as of [...] hemoglobin A1c goal of less than 8.0% ([facility]) TAKE ONE TABLET BY MOUTH THREE TIMES [...] vein occlusion, left eye, stable,Atherosclerosi s of [place] coronary artery without angina pectoris, unspecified whether [place] or transplanted heart,Dyslipidemia, goal LDL below 100 [...] aortic valve replacement ) 10/02/2023 Atherosclerosis of [place] co ronary artery without angina pectoris 08/03/2022 [...] mRNA, LNP-s, No Pre serve, 2-Dose Series ([email or web address]) 08/30/2021,02/07/2021,01/10/2021 HEP A - Hepatitis A (Adult [...] encounter Miscellaneous Notes * Telephone Encounter - Yumiko Burns LPN - 09/10/2024 9:24 AM EDT Patient advised of result note via CoTweet Message. Yumiko Burns LPN * Telephone Encounter - Yumiko Burns LPN - 09/10/2024 9:22 AM EDT ----- Message from Jaylyn Page sent at 09/09/2024 4:30 PM EDT ----- Echo with normal heart function. Aortic valve (TAVR) unchanged from last echo, mild to moderate mitral regurgitation. Overall stable. documented in this encounter Plan of Treatment Upcoming Encounters Date Type Department Care Team (Late st Contact Info) Description 09/14/2024 10:15 AM EDT Pharmacy Pharmacy, [address] [address] Clinic, [address] [address] 10/06/2024 2:30 PM EST Office Visit Cardiology, [address] [address] Jaylyn Page PA-C [address] [place] [address] 10/15/2024 10:00 AM EST Office Visit [facility], [address] [address] Sanjiv Hernandez CRNP [address] [place] [address] 11/18/2024 1:40 PM EST Office Visit Nephrology, [address] [address] Obinna Blank MD [address] [place] [address] 12/10/2024 10:00 AM EST Laboratory Laboratory, [address] [phone] [address] 03/18/2025 10:00 AM EDT Laboratory Laboratory, [address] [place] [phone] [facility] [address] [place] [address] 03/25/2025 8:00 AM EDT Office Visit [facility] [address] [place] [phone] Jessica Ansari MD [address] [place] [address] Scheduled Procedures Name Priority Associated Diagnoses Date/Ti [...] Additional history exists CKD HGB USE SMARTSET 41592 08/18/202508/18, 08/18/2024, 06/25/2024, Additional history exists CKD PHOS USE SMARTSET 93761 08/18/202508/02, 02/05/2023, 12/09/2018, Additional history exists HbA1c 08/18/2025 08/18/2024, 08/2023, 09/03/2023, Additional history exists TSH 08/18/2025 08/18/2024, 05/2023, 09/30/2023, Additional history exists DXA Scan [...] this encounter Medical Devices Implanted Type Area Cigarette Making Machine Hopper Feeder Device Identifier Shelf Expiration Date Model / Serial / Lot Sureclip 16mm 235cm - [id number] Implanted:Qty: 1 on 04/23/2023 by Deisy Tellez DO at [facility] [id number] 11/17/2024 [id number] / / [id number] Valve Dinh 3 Ultra 23mm - [id number] Implanted:Qty: 1 on 10/01/2023 by Mejia Brewster MD at [facility] [employer] [id number] 09/12/2024 [id number] / / documented as of this encounter [...] Discussed due to patient's condition Care Teams Disposal Man Relationship Specialty Start Date End Date Jessica Ansari MD [address] [place] [address] PCP - General Family Medicine 12/05/22 documented as of this encounter
[2024-09-22] MEDS: BUPIVACAINE/EPINEPHRINE 0.25% 1:200,000 30 ML VIAL ONE ×2 (11:40→14:49)
[2024-09-22] MEDS: ceFAZolin 330 MG/ML 1 GM VIAL ONE (11:41)
[2024-09-22] MEDS ORDERED: ePHEDrine sulfate 50 MG/5 ML SYR ONE (12:12)
--- NOTE | 2024-09-22 12:44 | Operative Report ---
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 #2 exploration of fusion L3-L5. #3 lumbar decompression bilateral medial facetectomies and foraminotomies L1-L2 L2-L3. #4 posterior spinal fusion L2-L3. #5 placement posterior instrumentation L2-L5. #6 interbody fusion L2-L3. #7 placement of Spira 10 x 26 mm at L2-L3. #8 placement locally harvested morselized autograft posterior gutters. #9 placement infuse collagen sponge combined with Koros in the posterior lateral gutters and os design in the interbody space. #10 application of versa wrap of the exposed dura. Surgeon Irvin Barnes, Supervisor Metalizing Ashli Donovan Estimated Blood Loss 150 Findings Consistent with Post-Op Diagnosis Specimens None Indications This is a 78-year-old female presents manage diagnosis of failed course of nonoperative care is here for surgical invention. Description of Procedure Patient was met with identified informed consent obtained. Patient was then taken to the operative suite underwent intubation placed in a prone position on the Michael table atop the Willi frame. All bony promises well-padded eyes inspected to ensure no external pressure placed upon the. This point the lumbar spine was prepped and draped normal sterile fashion. Sharp dissection with the assistance of Bovie cautery from down to and exposing the lamina and transverse processes of L2 and instrumentation at L3-L4-L5 bilaterally. I then proceeded to remove the hardware bilaterally explored the fusion mass noting it to be mature and intact. And then performed a complete laminectomy of L2 with bilateral male facetectomies and foraminotomies addressing severe spinal stenosis. Then performed partial laminectomy of L1 with bilateral medial facetectomies to address all subarticular disease. Pedicle screws were then placed in L2-L3 L5 bilaterally with assistance of fluoroscopy and appropriate size joie placed. By way of a transforaminal approach on the right a complete discectomy of L2-L3 was performed endplates corrected to subcortical bleeding bone and a 10 x 26 mm spiral cage filled with os designed tapped in position. Rods are then compressed locked into final position bilaterally. The transverse processes of L 2 L3 burred to subcortical bleeding bone. Infuse collagen sponge combined with Koros and local autograft placed in the posterior gutters. Versa wrap placed over the exposed dura. 15 round BORIS drain inserted. Incision was then closed with 1 Vicryl the fascia 2-0 Vicryl subcutaneously and 4 Monocryl for final skin closure. Steri-Strips sterile dressing placed. Patient waken taken to PACU in stable condition. Please note spinal cord monitoring was utilized at the procedure no changes noted. Ashli Donovan was present at the entire surgeon while the patient positioning complex portion of the surgery and final skin closure. Im ordering 20 grams of Triple [place] Collagen Powder ([employer] [id number]) to treat an incision wound that was caused by a spine procedure. The incision is approximately 2 cm(W) x 4 cm(L) into the joint (D) in size and is a full thickness wound. Triple [place] collagen comes in 1 gram packets so 20 packets were ordered. Given the size of the wound, with light to moderate exudate I chose to order a 20 day supply. The patient will be provided instructions for proper application of the collagen wound kit. The patient will be asked to apply the collagen powder daily and then cover it with sterile dressings dispensed. Collagen was selected as I expect the collagen to attract monocytes and fibroblasts, act as a sacrificial substrate for MMPs, and ultimately proved a matrix for tissue and vessel growth. The collagen will act as a primary dressing in this scenario. It is medically necessary for proper healing of these wounds to improve bioavailability and contact with each wound surface, this is also to help prevent infection of wounds and promote healing ultimately leading to a better healing outcome and limit the risk of infection. I attest to the content of the Intraoperative Record and any orders documented therein. Any exceptions are noted below.
[2024-09-22] MEDS: HYDROmorphone INJ 1 MG/ML SYRINGE IV PRN (13:08)
--- NOTE | 2024-09-22 13:22 | Fluoroscopy Report ---
FL lumbar spine 2-3V CLINICAL HISTORY: L2-L3 DECOMPRESSION, L2-L5 FUSION INSTRUMENTATION COMPARISON STUDY: Lumbar spine radiographs June 30, 2015. FLUOROSCOPY TIME: 16 seconds. Ka,r: 12.94 mGy FLUOROSCOPIC IMAGES: 2 FINDINGS: Fluoroscopy was provided during hardware removal and subsequent L2-L3 discectomy with inter body spacer placement. There is also a spacer at the L3-L4 level and the L4-L5 level. Posterior decom pression is noted. There are bilateral pedicle screws with interconnecting rods. The screws are at th e L2, L3 and L5 levels. IMPRESSION: Fluoroscopy provided during hardware removal and subsequent L2-L3 discectomy, posterior decompression and pedicle screw fusion extending from L2 through L5. ACT 112: Negative or not required by law. Electronically signed by: Cameron Rocha M.D. 09/22/2024 1:20 PM
[2024-09-22] MEDS: HYDROmorphone INJ 0.5 MG/0.5 ML SYR IV PRN (13:28)
[2024-09-22] MEDS ORDERED: METOCLOPRAMIDE HCL INJ 5 MG/ML 2 ML VIAL IV PRN (14:24)
[2024-09-22] MEDS ORDERED: bisacodyL 10 MG SUPP PR PRN (14:24)
[2024-09-22] MEDS ORDERED: ONDANSETRON 4 MG OD TAB PO PRN (14:24)
[2024-09-22] MEDS ORDERED: diphenhydrAMINE Capsule 25 MG CAP PO PRN (14:24)
[2024-09-22] MEDS ORDERED: traMADol HCL 50 MG TABLET PO PRN (14:24)
[2024-09-22] MEDS ORDERED: PROMETHAZINE 12.5 MG/50.5 ML BAG IV PRN (14:24)
[2024-09-22] MEDS ORDERED: ACETAMINOPHEN 1,000 MG/100 ML VIAL IV PRN (14:24)
[2024-09-22] MEDS ORDERED: ACETAMINOPHEN 500 MG TAB PO PRN (14:24)
[2024-09-22] MEDS ORDERED: LORazepam 2 MG/1 ML VIAL IV PRN (14:24)
[2024-09-22] MEDS ORDERED: ONDANSETRON INJ 2 MG/ML 2 ML VIAL IV PRN (14:24)
[2024-09-22] MEDS ORDERED: DO NOT ADMINISTER PNEUMOCOCCAL VACCINE PRN (14:24)
[2024-09-22] MEDS ORDERED: hydrOXYzine HCl 25 MG TAB PO PRN (14:24)
[2024-09-22] MEDS ORDERED: LORazepam 0.5 MG TAB PO PRN (14:24)
[2024-09-22] MEDS ORDERED: HYDROmorphone INJ 0.5 MG/0.5 ML SYR IV PRN (14:24)
[2024-09-22] MEDS ORDERED: ALUMINUM/MAGNESIUM SUSP 30 ML UDC PO PRN (14:24)
[2024-09-22] MEDS ORDERED: NALOXONE HCL 0.4 MG/1 ML VIAL/CARP IV PRN (14:24)
[2024-09-22] MEDS ORDERED: DO NOT ADMINISTER FLU VACCINE PRN (14:24)
[2024-09-22] MEDS ORDERED: SOD PHOSPHATE/SOD BIPHOSPHATE ENEMA 132 ML BTL PR PRN (14:24)
[2024-09-22] MEDS ORDERED: FAMOTIDINE 20 MG TAB PO PRN (14:24)
[2024-09-22] MEDS ORDERED: MAGNESIUM HYDROXIDE SUSP 30 ML UDC PO PRN (14:24)
--- NOTE | 2024-09-22 14:36 | Anesthesiology Progress Note ---
Date of Service September 22, 2024 Anesthesia Post Procedure Vital Signs Vital Signs: Temp Pulse Pulse Resp BP Pulse Ox O2 Del Method 09/22/24 14:25 36.7 C 70 18 134/62 98 Room Air 09/22/24 14:10 66 15 136/49 L 100 Nasal Cannula 09/22/24 14:00 36.4 C L 71 13 108/84 100 Nasal Cannula 09/22/24 13:50 66 17 145/59 H 100 Nasal Cannula 09/22/24 13:40 67 14 149/49 H 100 Nasal Cannula 09/22/24 13:30 63 22 159/50 H 98 Room Air 09/22/24 13:20 67 17 155/56 H 96 Room Air 09/22/24 13:10 66 19 137/42 L 92 Room Air 09/22/24 13:02 36 C L 64 13 116/40 L 95 Room Air 09/22/24 10:08 Room Air 09/22/24 10:08 37 C 62 20 173/56 H 98 Room Air O2 Flow Rate 09/22/24 14:25 09/22/24 14:10 2 09/22/24 14:00 2 09/22/24 13:50 2 09/22/24 13:40 2 09/22/24 13:30 09/22/24 13:20 09/22/24 13:10 09/22/24 13:02 09/22/24 10:08 09/22/24 10:08 Pain Intensity Back: Pain Intensity: 7 Transfer of Care Handoff Completed per policy Notes Mental Status: alert / awake / arousable and participated in evaluation Nausea / Vomiting: adequately controlled Pain: adequately controlled Airway Patency, RR, SpO2: stable & adequate BP & HR: stable & adequate Hydration State: stable & adequate Anesthetic Complications: no major complications apparent and Pt Satisfied with anesthetic care
[2024-09-22] MEDS: ceFAZolin 2000MG 2,000 MG/15 ML SYR IV SCH (14:49)
[2024-09-22] MEDS: FLOSEAL HEMOSTATIC MATRIX 10ML TOP ONE (14:49)
[2024-09-22] MEDS: oxyCODONE HCL IR 5 MG TAB (IMMEDIATE RELEASE) PO PRN (15:10)
[2024-09-22] MEDS: CEROVITE ADV FORMULA TAB PO SCH (15:12)
[2024-09-22] MEDS: rOPINIRole HCL 0.25 MG TABLET PO SCH (15:12)
[2024-09-22] MEDS: tiZANidine HCL 4 MG TABLET PO SCH (15:13)
[2024-09-22] MEDS: LACTATED RINGER'S 1,000 ML IV SCH (15:14)
[2024-09-22] MEDS ORDERED: carvediloL 12.5 MG TAB PO SCH (17:00)
[2024-09-22] MEDS: carvediloL 12.5 MG TAB PO SCH (17:28)
[2024-09-22] MEDS: ceFAZolin 1000MG 1,000 MG/7.5 ML SYR IV SCH (18:01)
--- NOTE | 2024-09-22 18:57 | Consultation ---
Date of Consultation September 22, 2024 Assessment & Plan (1) Lumbar stenosis with neurogenic claudication: Plan Status post lumbar spine surgery: Patient hemodynamically stable, doing well postoperatively, reports antibiotic with symptoms improvement. Pain management and bowel regimen, continue. Resume Eliquis as soon as possible when deemed less bleeding risks per orthospine surgeon. Monitor H&H in AM. Other chronic medical conditions: HLD, HTN, prediabetes, status post TAVR, CAD --- continue with/resume home meds as when able. DVT prophylaxis: SCDs until Eliquis can be resumed. Full code History of Present Illness Requesting Physician: Dr. Barnes Reason for Consultation: Medical Mx Attending Physician: Irvin Barnes, History of Present Illness 78-year-old with PMH of GERD, hypothyroidism, HLD, prediabetes, HTN, CAD, Aortic stenosis, status post TAVR, on Eliquis was seen and examined at bedside as a medical consult status post lumbar spine surgery. Patient reports RLE radicular signs and symptoms improvement, reports operative site pain and is waiting for pain medication. Patient denies any febrile illness/cough or sore throat in the last 1 week. Patient denies chest pain/belly pain/headache/dizziness/shortness of breath. Allergies Allergy/AdvReac Type Severity Reaction Status Date / Time No Known Allergies Allergy Verified 09/22/24 09:50 Home Medications Medication Instructions Recorded Confirmed Type amlodipine 10 mg tablet 10 mg PO QAM 09/01/24 09/22/24 History apixaban 5 mg tablet (Eliquis) 5 mg PO BID 09/01/24 09/22/24 History atorvastatin 40 mg tablet 40 mg PO QPM 09/01/24 09/22/24 History carvedilol 12.5 mg tablet 1 mg PO BID 09/01/24 09/22/24 History cholecalciferol (vitamin D3) 50 50 mcg PO QAM 09/01/24 09/22/24 History mcg (2,000 unit) capsule (Vitamin D3) furosemide 40 mg tablet 40 mg PO QAM 09/01/24 09/22/24 History garlic 500 mg PO QAM 09/01/24 09/22/24 History iron,carbonyl 65 mg-vitamin C 125 2 tab PO QDL 09/01/24 09/22/24 History mg tablet,delayed release (Vitron-C) levothyroxine 100 mcg tablet 100 mcg PO QAM 09/01/24 09/22/24 History magnesium 1 tab PO BID 09/01/24 09/22/24 History olmesartan 40 mg tablet 40 mg PO QAM 09/01/24 09/22/24 History oxycodone-acetaminophen 5 mg-325 1 tab PO BID PRN Pain 09/01/24 09/22/24 History mg tablet (Percocet) ropinirole 0.25 mg tablet 0.25 mg PO TID 09/01/24 09/22/24 History tizanidine 4 mg tablet 2 mg PO TID 09/01/24 09/22/24 History trazodone 150 mg tablet 150 mg PO HS 09/01/24 09/22/24 History venlafaxine 37.5 mg tablet 37.5 mg PO BID 09/01/24 09/22/24 History vit C 250 mg-vit E 90 mg-zinc 40 2 tab PO 1500 09/01/24 09/22/24 History mg-copper 1 [id number] capsule (PreserVision AREDS-2) Patient History Medical History Anxiety Chronic anemia Baseline hgb 9-10s Chronic back pain Chronic kidney disease [facility] Nephrology Baseline creatinine 2.1-2.2 per available records Coronary artery disease Cardiac cath 08/2023- nonobstructive disease, medical management recommended Degenerative disc disease Depression History of aortic valve disease TAVR Dinh (09/2023) Follows with [facility] cardio Echo 09/2024 History of COVID-19 : mild symptoms, resolved History of non-Hodgkin's lymphoma (2004) s/p chemotherapy, currently in remission History of stroke 07/2022, residual mild right hand/right foot weakness Hx of diabetes mellitus Type 2, diet controlled Hyperlipidemia Hypertension Hypothyroidism Macular degeneration of left eye Mild/early stages Osteoarthritis Restless leg syndrome Surgical History History of cardiac cath 08/2023 (prior to TAVR)- no stents History of cataract surgery R/L History of cholecystectomy History of colonoscopy Per records History of ERCP (2022) + stent placement (subsequent removal) History of esophagogastroduodenoscopy (EGD) Per records History of heart valve replacement 09/2023- TAVR Dinh History of knee replacement procedure of left knee History of Lizy-en-Y gastric bypass History of umbilical hernia repair S/P epidural steroid injection S/P lumbar fusion x2 L3/L4 fusion L4/L5 fusion S/P lymph node biopsy (2004) Groin S/P panniculectomy S/P AMERICA-BSO Family History Other No family history of adverse response to anesthesia Social History Smoking Status: Never smoker Second Hand Exposure: No; Do You Dip or Chew Tobacco: No; Tobacco Cessation Education Requested by Patient: No Hx Alcohol Use: No Hx Substance Use: No Preferred Language: Kazakh Communication Ability: Effective Freight Sales Broker Required: No Beliefs That Will Affect Care: None Current Living Situation: Family Current Living Situation Comment: daughterMagi lives with patient Other Information That Helps Us Care for You: No Feels Safe at Home: Yes Safety Concerns: Feels Safe At This Time Assistive Devices: Denture - Upper, Denture - Lower and Glasses Review of Systems Review of Systems: Negative otherwise mentioned in HPI. Physical Exam Physical Exam: GENERAL: Alert and oriented x3. NAD, on 2L NC O2. HEENT: No pallor, no icterus. Pupils equal, round and reactive to light. Oral mucosa moist. NECK: No JVD, no neck masses. HEART: S1 and S2 heard. Regular rate and rhythm. No murmur, no gallop. RESPIRATORY SYSTEM: Normal AP diameter. No accessory muscle use. No wheezing, no crackles. ABDOMEN: Soft, bowel sounds present, nontender, no distention. CENTRAL NERVOUS SYSTEM: No facial droop. Speech is clear. Obeys simple commands. Moves extremities. EXTREMITIES: No edema, no erythema seen. Low back dressing without soakage. BORIS drain with serosanguineous output. Results & Data Vital Signs (Past 12 Hours) Vital Signs Temp Pulse Pulse Resp BP BP Pulse Ox 09/22/24 18:05 119/74 09/22/24 17:26 36.3 C L 62 16 99/62 L 100 09/22/24 16:37 36.4 C L 62 16 117/78 100 09/22/24 15:45 36.4 C L 63 16 137/73 93 09/22/24 15:10 36.5 C 61 18 148/73 H 97 09/22/24 14:25 36.7 C 70 18 134/62 98 09/22/24 14:10 66 15 136/49 L 100 09/22/24 14:00 36.4 C L 71 13 108/84 100 09/22/24 13:50 66 17 145/59 H 100 09/22/24 13:40 67 14 149/49 H 100 09/22/24 13:30 63 22 159/50 H 98 09/22/24 13:20 67 17 155/56 H 96 09/22/24 13:10 66 19 137/42 L 92 09/22/24 13:02 36 C L 64 13 116/40 L 95 09/22/24 10:08 09/22/24 10:08 37 C 62 20 173/56 H 98 O2 Del Method O2 Flow Rate 09/22/24 18:05 09/22/24 17:26 Nasal Cannula 2 09/22/24 16:37 Nasal Cannula 2 09/22/24 15:45 Room Air 09/22/24 15:10 Room Air 09/22/24 14:25 Room Air 09/22/24 14:10 Nasal Cannula 2 09/22/24 14:00 Nasal Cannula 2 09/22/24 13:50 Nasal Cannula 2 09/22/24 13:40 Nasal Cannula 2 09/22/24 13:30 Room Air 09/22/24 13:20 Room Air 09/22/24 13:10 Room Air 09/22/24 13:02 Room Air 09/22/24 10:08 Room Air 09/22/24 10:08 Room Air
[2024-09-22] MEDS: traZODone HCL 50 MG TAB PO SCH (19:25)
[2024-09-22] MEDS: MAGNESIUM OXIDE 400 MG TAB PO SCH (19:27)
[2024-09-22] MEDS: VENLAFAXINE HCL 37.5 MG TAB PO SCH (19:27)
[2024-09-22] MEDS: ATORVASTATIN 40 MG TAB PO SCH (19:27)
[2024-09-22] MEDS: DOCUSATE SODIUM/SENNA 50/8.6MG TAB PO SCH (20:10)
[2024-09-23] MEDS: LEVOTHYROXINE SODIUM 100 MCG TABLET PO SCH (05:29)
[2024-09-23] MEDS: POLYETHYLENE (MIRALAX) 17 GM PACK PO SCH (05:29)
[2024-09-23 06:40] LABS: Calcium 8.2 mg/dl (8.6-10.3); Potassium 4.3 mmol/L (3.5-5.1)
[2024-09-23 06:46] LABS: BUN Creatinine Ratio 16.3 (10-20); Creatinine Clr Calc Pharmacy 24.1 ml/min
[2024-09-23] MEDS: HYDROmorphone INJ 1 MG/ML SYRINGE IV PRN (08:36)
[2024-09-23] MEDS: FUROSEMIDE 40 MG TAB PO SCH (08:38)
[2024-09-23] MEDS: CHOLECALCIFEROL 25 MCG (1000 UNITS) TAB PO SCH (08:39)
[2024-09-23] MEDS: amLODIPine BESYLATE 5 MG TAB PO SCH (08:39)
[2024-09-23] MEDS: LOSARTAN POTASSIUM 50 MG TAB PO SCH (08:40)
[2024-09-23] MEDS: dexAMETHasone 6 MG in SYRINGE 0 ML IV SCH (08:42)
--- NOTE | 2024-09-23 08:44 | Orthopedic Progress Note ---
Date of Service September 23, 2024 Assessment & Plan (1) Lumbar stenosis with neurogenic claudication: Plan: This time continue physical therapy monitor BORIS operatively discharge home tomorrow. Admission and Anticipated Discharge Date Admission Date: September 22, 2024 Subjective Patient resting comfortably Review of Systems Review of Systems: Patient is currently in bed. Drain is functioning. Results & Data Vital Signs (Past 12 Hours) Vital Signs Temp Pulse Resp BP Pulse Ox O2 Del Method 09/23/24 06:33 36.4 C L 69 16 148/77 H 96 Room Air 09/23/24 02:59 37 C 78 18 127/75 95 Room Air 09/22/24 22:53 36.4 C L 62 16 132/74 98 Room Air Queries Orthopedic Spine Acute Posthemorrhagic Anemia: Yes
[2024-09-23 09:10] LABS: Basophils # (auto) 0.02 K/uL (0.00-0.20); Basophils % (auto) 0.3 %; Echinocytes 1+; Eosinophils # (auto) 0.59 K/uL (0.00-0.50); Eosinophils % (auto) 8.7 %; Immature Granulocytes # (auto) 0.06 K/uL (0.01-0.20); Immature Granulocytes % (auto) 0.9 %; Lymphocytes # (auto) 1.37 K/uL (1.20-3.40); Lymphocytes % (auto) 20.1 %; Mean Corpuscular Hemoglobin 26.9 pg (25.0-34.0); Mean Corpuscular Volume 89.6 fL (80.0-100.0); Mean Platelet Volume 10.9 fL (9.4-12.4); Monocytes # (auto) 0.54 K/uL (0.11-0.59); Monocytes % (auto) 7.9 %; Neutrophils # (auto) 4.24 K/uL (1.40-6.50); Neutrophils % (auto) 62.1 %; Platelet Count 164 K/uL (130-400); Platelet Estimate Normal (Normal); RDW Coefficient of Variation 13.9 % (11.5-14.5); RDW Standard Deviation 45.4 fL (36.4-46.3); Red Blood Count 3.35 M/uL (4.20-5.40); White Blood Count 6.82 K/ul (4.8-10.8)
[2024-09-23] MEDS ORDERED: ASCORBIC ACID 500 MG TAB PO SCH (11:30)
[2024-09-23] MEDS ORDERED: FERROUS SULFATE 325 MG TAB PO SCH (11:30)
[2024-09-23] MEDS: FERROUS SULFATE 325 MG TAB PO SCH (12:10)
--- NOTE | 2024-09-23 12:14 | Hospitalist Progress Note ---
Date of Service September 23, 2024 Assessment & Plan (1) Lumbar stenosis with neurogenic claudication: (2) Chronic kidney disease: (3) Hypothyroidism: (4) Hypertension: (5) Chronic anticoagulation: (6) History of stroke with current residual effects: Plan Patient appears to be doing well postoperatively with no acute issues Continue current outpatient medications as ordered Therapies as directed by attending Resume chronic Eliquis/anticoagulation when appropriate as deemed by the attending. Admission and Anticipated Discharge Date Admission Date: September 22, 2024 Subjective Patient reports her pain is controlled. Had a decent night. No chest pain or shortness of breath Physical Exam 2 Physical Exam: Constitutional: Alert, nontoxic HEENT: Mucous membranes moist. Lungs: Clear to auscultation, decreased, no wheezes rales or rhonchi CV: S1-S2, regular, systolic murmur Abdomen: Soft, nontender, nondistended Extremities: No significant edema Neuro: No focal deficits Psych: Cooperative, normal mood Results & Data Results & Data Vital Signs (Past 12 Hours) Vital Signs Temp Pulse Resp BP Pulse Ox O2 Del Method 09/23/24 09:29 112/68 09/23/24 06:33 36.4 C L 69 16 148/77 H 96 Room Air 09/23/24 02:59 37 C 78 18 127/75 95 Room Air Diagnostic Findings Reviewed imaging, laboratory and diagnostic studies. Pertinent findings as below. WBC 6.8 Hemoglobin 9.0 Platelets of 164 Electrolytes stable Creatinine 1.5
[2024-09-23] MEDS: ASCORBIC ACID 500 MG TAB PO SCH (12:44)
[2024-09-23 20:39] VITALS: RESP 16; O2SAT 97
[2024-09-24 07:29] VITALS: TEMP 97.9
--- NOTE | 2024-09-24 08:23 | Discharge Summary ---
Date of Service September 24, 2024 Admission HPI Per Admitting Provider This is a 78-year-old female presents with chronic persistent back and leg pain after failing course of nonoperative care is here for surgical invention. Principal Diagnosis Lumbar spinal stenosis with neurogenic claudication Discharge Data Allergies Allergy/AdvReac Type Severity Reaction Status Date / Time No Known Allergies Allergy Verified 09/22/24 09:50 Consultations 09/22/24 14:24 Consult Hospitalist Routine Procedures Performed Operation Date: 09/22/24 10:55 Actual Procedures p L2-L3 Decompression, and L2-L5 Fusion Instrumentation, Spinal Cord Monitoring(Not Applicable) - Irvin Barnes DO s L3-L5 Hardware Removal,(Not Applicable) - Ivrin Barnes DO Ordered Studies 09/22/24 10:55 [place] lumbar spine 2-3V Routine Hospital Course (1) Lumbar stenosis with neurogenic claudication: Patient underwent lumbar decompression fusion tolerated well was taken to orthopedic for postoperative. Post ablation progressed appropriately. Marked improvement of her leg symptoms. Extra strength testing. BORIS drain decreasing appropriate. Pain well-controlled. Subsidy discharged home. Discharge orders instructions from the chart for further review. Total Time Total Time Spent Total Time Spent (In Minutes): 20 minutes Discharge Plan Discharge Items Patient Disposition: Home - Self-Care Reason For Visit: Lumbar Region Spinal Stenosis with Neurogenic Stacie Discharge Diagnosis: Lumbar spinal stenosis with neurogenic claudication Activity: As commented below Non-emergency contact: Primary Care Provider Follow-up/Referrals: Fatmata Daniel MD [Primary Care Provider] - Diet: Regular Addtl Attending Provider Instructions: ACTIVITY RECOMMENDATIONS: SELF CARE INSTRUCTIONS AFTER THORACIC/LUMBAR FUSIONS 1. You may walk to your tolerance. It is good exercise for your legs and back. Expect some back and intermittent leg aches and pains. 2. You may perform "counter-top" level activities (make a sandwich, arnaldo with a project, etc.). 3. No bending or lifting of more than 10 pounds or back twisting of any nature (roll like a log when turning in bed). 4. You may ride in a car for 20-30 minutes at a time. No driving until after your first visit with your doctor. 5. Frequent changes of position and restricting sitting to 30 minutes at a time will help limit the amount of back spasms and stiffness you may experience. 6. You may discontinue the use of ambulatory aids (cane, crutches, etc.) once your strength and confidence allow. 7. You may pulling machine operator the shower and let water strike your incision when you arrive home at least once daily. Do not take a tub bath, sit in a hot tub or go into a swimming pool until after your first recheck in the office. 8. You may resume previous diet. SPECIAL CARE INSTRUCTIONS: VERY IMPORTANT TO READ AND REVIEW A. Your surgical incision has been closed with a cosmetic suture under the skin that will dissolve in about 6 weeks. In 14 days, you can use a pair of clean scissors and cut the suture that is left outside of the skin at the ends of your incision. 1. The small skin tapes can be removed 7 days after surgery if they have not fallen off by that point. 2. You may keep the wound open to air as much as possible to promote healing after post-op day number 5 unless told otherwise by your doctor. 3. If you think the wound looks like it is becoming infected (redness or worsening drainage) and/or you are experiencing fever, chill or worsening back pain and muscle spasms, contact the office so that we may evaluate you as soon as possible. B. Complications are uncommon, but please contact us if you have any signs or symptoms of: 1. wound infection (fever higher than 102.5 degrees F, redness, separation of wound, drainage, or increasing pain from the incision) 2. blood clots in legs (pain, swelling, redness and warmth in legs) 3. urinary tract infection (fever higher than 102.5 degrees F, burning upon urination or increased frequency of urination) 4. nerve problems (inability to walk on your toes or heels, numbness, loss of bowel or bladder control) 5. any other symptoms that concern you C. Please call the office at if you have any concerns or q uestions about your operation or recovery. D. No smoking! Smoking drastically decreases the chance of a solid fusion. E. Do not take any anti-inflammatory medications (Indocin, Advil, Motrin, Aspirin, Naprosyn, etc.) as these may inhibit the chance of a solid fusion. Tylenol is okay to take for pain. MANAGING PAIN AFTER SPINAL SURGERY 1. Narcotic medication is intended for short-term use and will be provided for surgical pain. Surgical pain usually lasts for a period of 4-6 weeks. Narcotic medication includes Percocet, Vicodin, Darvocet, Tylenol #3 or Lortab. 2. Longer-term pain is more appropriately treated with non-narcotic medication such as Tylenol ES. 3. Muscle spasm is not appropriately treated with narcotics. Muscle relaxers such as Soma, Flexeril or Skelaxin can be used along with Tylenol ES. 4. Remember that we all live with some "aches and pains". This is not unusual or uncommon after an injury or as we get older. a. Back pain is expected and may include muscle spasms for 4 to 6 weeks after surgery. The pain should gradually improve. If the pain worsens for no apparent reason, please contact the office. b. Intermittent leg pain may also be experienced and should not be concerned about unless it worsens for no apparent reason. If so, please contact the office. 5. We will provide appropriate medication within the normal guidelines of their prescribed use. We will also be very cautious and aware of potential abuse and extended duration of patients' medication needs. a. Pain medications are for your comfort and to assist with sleep and rest so that the tissue can heal. They are not provided in order to return to normal activity and should not be used through the day. To do so or worsening pain at night can result from ongoing tissue damage and development of tolerance to the prescribed medicine. 6. Please allow 2-3 days to process refills. Prescriptions will not be mailed but must be picked up at the office. FOLLOW UP VISIT: Keep your scheduled follow-up appointment. Any questions, please call the office at . Pending Studies at Discharge: No Stand-Alone Forms: [facility] [employer], Smoking Cessation Medications and DC Order Prescriptions: New oxycodone 5 mg tablet 5 mg PO Q6H PRN (Reason: pain) Qty: 30 0RF tramadol 50 mg tablet 50 mg PO Q6H PRN (Reason: pain, moderate) Qty: 30 0RF Continued furosemide 40 mg Tablet 40 mg PO QAM atorvastatin 40 mg Tablet 40 mg PO QPM carvedilol 12.5 mg Tablet 1 mg PO BID Rx Instructions: must administer with a meal/food tizanidine 4 mg Tablet 2 mg PO TID levothyroxine 100 mcg Tablet 100 mcg PO QAM oxycodone-acetaminophen [Percocet] 5-325 mg Tablet 1 tab PO BID PRN (Reason: Pain) ropinirole 0.25 mg Tablet 0.25 mg PO TID amlodipine 10 mg Tablet 10 mg PO QAM venlafaxine 37.5 mg Tablet 37.5 mg PO BID trazodone 150 mg Tablet 150 mg PO HS olmesartan 40 mg Tablet 40 mg PO QAM cholecalciferol (vitamin D3) [Vitamin D3] 50 mcg (2,000 unit) Capsule 50 mcg PO QAM Vitron-C 65 mg iron- 125 mg Tablet,Delayed Release (Dr/Ec) 2 tab PO QDL PreserVision AREDS-2 250-90-40-1 mg Capsule 2 tab PO 1500 garlic Capsule 500 mg PO QAM magnesium Tablet 1 tab PO BID Rx Instructions: 240mg magnesium glycinate Held Eliquis 5 mg Tablet 5 mg PO BID Discharge Orders: Discharge Order (Routine); Ordered 09/24/24 Ordered By: Irvin Barnes Admission Data Admit Date/Time: 09/22/24 12:47 Attending Provider: Irvin Barnes Admit Provider: Irvin Barnes Primary Care Provider: Fatmata Daniel Other Providers: Casi Espinosa
[2024-09-24 08:54] VITALS: PULSE 72
[2024-09-24 09:13] VITALS: BP 99/62
--- NOTE | 2024-09-25 12:26 | Coding Query ---
CODING QUERY To promote full compliance with coding requirements relating to patient care, provider participation is requested in all cases of oncology consultant uncertainty. Please assist us with the question(s) below: Coding Question(s): H&P lists History of DM, Type 2 diet controlled. Consult note lists Prediabetes under HPI but History of DM, Type 2 diet controlled under Medical History. Please clarify if pt has Prediabetes or DM, type 2 currently. Physician's Response(s): prediabetes Thank you Clarita Hager Principal Diagnosis: "that condition established after study, to be chiefly responsible for occasioning the admission of the patient to the hospital for care." Co-Existing Principal Diagnosis: "when two or more diagnoses equally meet the criteria for principal diagnosis as determined by the circumstances of admission, diagnostic work up, and/or therapy provided, and the Alphabetic Index, Tabular List, or another coding guideline does not provide sequencing direction, any one of the diagnoses may be sequenced first." "When the physician has documented what appears to be a current diagnosis in the body of the record, but has not included the diagnosis in the final diagnostic statement, the physician should be asked whether the diagnosis should be added." (Source [facility]oding [facility] 2 QTR90. p3-4) WILBER
== END 2024-09-24 10:09 | disposition home or self-care (01) | DRG 402 ==
LOC: ASU 08:58 → 3E 12:47